=== PATIENT | female | born 1945 | race Caucasian/White ===

== ENCOUNTER 2021-11-25 16:53 | Inpatient (IN) ==
[2021-11-25 18:03] LABS: Bilirubin,Urine Negative (Negative); Blood, Urine Moderate mg/dL (Negative); Glucose,Urine (UA) Negative (Negative); Ketones,Urine Negative (Negative); Nitrite,Urine Negative (Negative); Protein,Urine 100 mg/dL (Negative); Urine Appearance HAZY (Clear); Urine Color Yellow (Yellow); Urine pH 5.5 (4.5-8.0)
[2021-11-25 18:04] LABS: Urine Urobilinogen 0.2 eU/dL (<2.0)
[2021-11-25 18:06] LABS: Bacteria,Urine Occasional /HPF (Few); RBC,Urine 43 /HPF (0-4)
[2021-11-25 18:18] LABS: Basophils # 0.1 10*3/uL (0.0-0.2); Basophils % 0.8 % (0.0-0.8); Eosinophils # 0.3 10*3/uL (0.0-0.87); Eosinophils % 3.1 % (0.00-10.9); Hematocrit 29.7 VOL% (35.7-47.0); Hemoglobin 9.2 GM/DL (12.0-16.0); Immature Granulocytes % 0.4 %; Immature Granulocytes Absolute 0.04 #; Lymphocytes # 1.5 10*3/uL (1.4-4.0); Lymphocytes % 14.8 % (21.3-54.2); Mean Corpuscular Volume 81.1 FL (87-102); Mean Platelet Volume 9.1 FL (9.6-12.0); Monocytes # 0.6 10*3/uL (0.11-0.8); Monocytes % 6.4 % (1.7-12.7); Neutrophils % 74.5 % (38.7-73.9); Platelet Count 489 T/CUMM (130-400); Red Blood Count 3.66 MC/CUMM (3.8-5.5); Red Cell Distribution Width 15.7 % (9.3-17.3)
[2021-11-25] MEDS ORDERED: SODIUM CHLORIDE 0.9% 1,000 ML IV STA (18:34)
[2021-11-25] MEDS ORDERED: cefTRIAXone 1,000 MG in SODIUM CHLORIDE 0.9% 100 ML IV STA (18:34)
[2021-11-25 18:35] LABS: Alanine Aminotransferase 30 U/L (13-56); Albumin 3.3 G/DL (3.4-5.0); Alkaline Phosphatase 172 U/L (45-117); Aspartate Amino Transferase 14 U/L (0-37); Bilirubin,Total < 0.39 MG/DL (0.20-1.00); Blood Urea Nitrogen 140 MG/DL (7-18); Calcium 9.6 MG/DL (8.5-10.1); Carbon Dioxide 16 MMOL/L (21-32); Chloride 102 MMOL/L (98-107); Estimated Glom Filtration Rate 9 ML/MIN; Glucose 196 MG/DL (74-106); Osmolality,Calculated 303.4 MOS/KG (273-304); Potassium 5.3 MMOL/L (3.5-5.1); Sodium 126 MMOL/L (136-145); Total Protein 8.9 G/DL (6.4-8.2)
[2021-11-25] MEDS ORDERED: hydrALAZINE 20 MG/1 ML VIAL IV PRN (20:05)
[2021-11-25] MEDS ORDERED: MORPHINE 2 MG/1 ML SYRINGE IV PRN (20:05)
[2021-11-25] MEDS ORDERED: DEXTROSE 50% 25 GM/50 ML VIAL IV PRN (20:05)
[2021-11-25] MEDS ORDERED: GLUCAGON 1 MG VIAL IM PRN ×2 (20:05)
[2021-11-25] MEDS ORDERED: guaiFENesin/DM ER 600-30 MG TABLET PO PRN (20:05)
[2021-11-25] MEDS ORDERED: NICOTINE 21 MG/24 HR PATCH TRANSDERM PRN (20:05)
[2021-11-25] MEDS ORDERED: ONDANSETRON 4 MG/2 ML VIAL IV PRN (20:05)
[2021-11-25] MEDS ORDERED: diphenhydrAMINE CAP 25 MG CAPSULE PO PRN (20:05)
[2021-11-25] MEDS ORDERED: DEXTROSE 10% 250 ML BAG IV PRN (20:13)
[2021-11-25 20:19] LABS: Basophils # 0.1 10*3/uL (0.0-0.2); Basophils % 0.8 % (0.0-0.8); Eosinophils # 0.3 10*3/uL (0.0-0.87); Eosinophils % 3.1 % (0.00-10.9); Hematocrit 29.3 VOL% (35.7-47.0); Immature Granulocytes % 0.7 %; Immature Granulocytes Absolute 0.07 #; Lymphocytes # 1.6 10*3/uL (1.4-4.0); Lymphocytes % 14.9 % (21.3-54.2); Mean Corpuscular HGB Conc 30.7 GM/DL (32-36); Mean Corpuscular Volume 81.2 FL (87-102); Mean Platelet Volume 9.8 FL (9.6-12.0); Monocytes # 0.8 10*3/uL (0.11-0.8); Monocytes % 7.9 % (1.7-12.7); Neutrophils % 72.6 % (38.7-73.9); Platelet Count 503 T/CUMM (130-400); Red Blood Count 3.61 MC/CUMM (3.8-5.5); Red Cell Distribution Width 15.6 % (9.3-17.3); White Blood Count 10.5 T/CUMM (4-12)
[2021-11-25 21:24] LABS: Sedimentation Rate-Westergren 68 MM/HR (0-30)
[2021-11-25] MEDS: SODIUM CHLORIDE 0.9% 1,000 ML IV SCH (22:21)
[2021-11-25] MEDS: ZALEPLON 5 MG CAPSULE PO PRN (22:21)
[2021-11-25] MEDS: INSULIN LISPRO 100 UNIT/ML SUBCUT SCH (22:22)
[2021-11-26 05:16] LABS: Basophils # 0.1 10*3/uL (0.0-0.2); Basophils % 0.8 % (0.0-0.8); Eosinophils # 0.4 10*3/uL (0.0-0.87); Eosinophils % 3.9 % (0.00-10.9); Hematocrit 26.9 VOL% (35.7-47.0); Hemoglobin 8.3 GM/DL (12.0-16.0); Immature Granulocytes % 0.5 %; Immature Granulocytes Absolute 0.05 #; Lymphocytes # 1.3 10*3/uL (1.4-4.0); Lymphocytes % 14.2 % (21.3-54.2); Mean Corpuscular HGB Conc 30.9 GM/DL (32-36); Mean Corpuscular Volume 81.3 FL (87-102); Mean Platelet Volume 9.1 FL (9.6-12.0); Monocytes # 0.7 10*3/uL (0.11-0.8); Monocytes % 7.6 % (1.7-12.7); Platelet Count 449 T/CUMM (130-400); Red Blood Count 3.31 MC/CUMM (3.8-5.5); Red Cell Distribution Width 15.4 % (9.3-17.3); White Blood Count 9.2 T/CUMM (4-12)
[2021-11-26 05:41] LABS: Calcium 9.4 MG/DL (8.5-10.1); Osmolality,Calculated 318.1 MOS/KG (273-304); Potassium 5.5 MMOL/L (3.5-5.1)
[2021-11-26] MEDS ORDERED: cefTRIAXone 1,000 MG in SODIUM CHLORIDE 0.9% 100 ML IV ONE (07:46)
[2021-11-26] MEDS: INSULIN LISPRO 100 UNIT/ML SUBCUT SCH ×4 (07:47→21:07)
[2021-11-26] MEDS: PANTOPRAZOLE 40 MG TABLET PO SCH (09:44)
[2021-11-26] MEDS: ACETAMINOPHEN 325 MG TABLET PO PRN (09:44)
[2021-11-26] MEDS: SODIUM POLYSTYRENE SULFATE 15 GM/60 ML BOTTLE PO SCH ×3 (09:44→21:02)
[2021-11-26] MEDS: cefTRIAXone 1,000 MG in SODIUM CHLORIDE 0.9% 100 ML IV SCH (09:44)
[2021-11-26] MEDS: NICOTINE 21 MG/24 HR PATCH TRANSDERM SCH (11:03)
[2021-11-26 12:43] LABS: Hemoglobin A1 (Alkaline) 98.2 % (96.5-98.5); Hemoglobin A2 (Alkaline) 1.8 % (1.5-3.5)
[2021-11-26] MEDS: SODIUM CHLORIDE 0.9% 1,000 ML IV SCH (21:15)
[2021-11-26] MEDS: METOPROLOL TARTRATE 25 MG TABLET PO SCH (21:16)
[2021-11-26] MEDS: SIMVASTATIN 10 MG TABLET PO SCH (21:16)
[2021-11-26] MEDS: ZALEPLON 5 MG CAPSULE PO PRN (21:19)
[2021-11-27] MEDS: SODIUM POLYSTYRENE SULFATE 15 GM/60 ML BOTTLE PO SCH (04:51)
[2021-11-27 06:07] LABS: Basophils # 0.1 10*3/uL (0.0-0.2); Basophils % 1.1 % (0.0-0.8); Eosinophils # 0.5 10*3/uL (0.0-0.87); Eosinophils % 5.5 % (0.00-10.9); Hematocrit 25.2 VOL% (35.7-47.0); Hemoglobin 7.7 GM/DL (12.0-16.0); Immature Granulocytes % 0.5 %; Immature Granulocytes Absolute 0.04 #; Lymphocytes # 1.6 10*3/uL (1.4-4.0); Lymphocytes % 18.9 % (21.3-54.2); Mean Corpuscular HGB Conc 30.6 GM/DL (32-36); Mean Corpuscular Volume 82.1 FL (87-102); Mean Platelet Volume 9.5 FL (9.6-12.0); Monocytes # 0.9 10*3/uL (0.11-0.8); Monocytes % 10.6 % (1.7-12.7); Neutrophils % 63.4 % (38.7-73.9); Platelet Count 407 T/CUMM (130-400); Red Blood Count 3.07 MC/CUMM (3.8-5.5); Red Cell Distribution Width 15.9 % (9.3-17.3); White Blood Count 8.4 T/CUMM (4-12)
[2021-11-27 06:25] LABS: Alanine Aminotransferase 25 U/L (13-56); Albumin 2.7 G/DL (3.4-5.0); Alkaline Phosphatase 134 U/L (45-117); Aspartate Amino Transferase 16 U/L (0-37); Bilirubin,Total < 0.39 MG/DL (0.20-1.00); Blood Urea Nitrogen 117 MG/DL (7-18); Calcium 8.7 MG/DL (8.5-10.1); Carbon Dioxide 17 MMOL/L (21-32); Chloride 114 MMOL/L (98-107); Estimated Glom Filtration Rate 12 ML/MIN; Glucose 100 MG/DL (74-106); Osmolality,Calculated 317.3 MOS/KG (273-304); Phosphorous 4.9 MG/DL (2.5-4.9); Potassium 4.2 MMOL/L (3.5-5.1); Sodium 141 MMOL/L (136-145); Total Protein 7.3 G/DL (6.4-8.2); Uric Acid 6.4 MG/DL (2.6-6.0)
[2021-11-27] MEDS: INSULIN LISPRO 100 UNIT/ML SUBCUT SCH ×4 (07:10→20:44)
[2021-11-27] MEDS ORDERED: cefTRIAXone 1,000 MG in SODIUM CHLORIDE 0.9% 100 ML IV ONE (07:30)
[2021-11-27] MEDS: cefTRIAXone 1,000 MG in SODIUM CHLORIDE 0.9% 100 ML IV SCH (10:38)
[2021-11-27] MEDS: METOPROLOL TARTRATE 25 MG TABLET PO SCH ×2 (10:39→20:44)
[2021-11-27] MEDS: CYANOCOBALAMIN 500 MCG TABLET PO SCH (10:40)
[2021-11-27] MEDS: PANTOPRAZOLE 40 MG TABLET PO SCH (10:40)
[2021-11-27] MEDS: NICOTINE 21 MG/24 HR PATCH TRANSDERM SCH (10:40)
[2021-11-27] MEDS ORDERED: LACTATED RINGERS 1,000 ML IV SCH (13:30)
[2021-11-27] MEDS ORDERED: MIDAZOLAM 2 MG/2 ML VIAL ONE (14:18)
[2021-11-27] MEDS ORDERED: SEVOFLURANE 1 UNIT/15 MINUTE INH ONE (15:16)
[2021-11-27] MEDS ORDERED: LIDOCAINE 2% 5 ML VIAL ONE (15:16)
[2021-11-27] MEDS ORDERED: propofoL 200 MG/20 ML VIAL IV ONE (15:16)
[2021-11-27] MEDS ORDERED: ONDANSETRON 4 MG/2 ML VIAL ONE (15:16)
[2021-11-27 15:47] LABS: RBC,Urine 1220 /HPF (0-4); Squamous Epithelial Cell,Urine Occasional /HPF (0-10)
[2021-11-27 15:48] LABS: Bilirubin,Urine Negative (Negative); Blood, Urine Large mg/dL (Negative); Glucose,Urine (UA) Negative (Negative); Ketones,Urine Negative (Negative); Nitrite,Urine Negative (Negative); Protein,Urine Negative (Negative); Urine Appearance Slightly Cloudy (Clear); Urine Color P (Yellow); Urine Specific Gravity 1.008 (1.001-1.035); Urine Urobilinogen 0.2 eU/dL (<2.0)
[2021-11-27] MEDS ORDERED: DEXTROSE 10% 250 ML BAG IV PRN (16:14)
[2021-11-27] MEDS: SODIUM CHLORIDE 0.9% 1,000 ML IV SCH (16:20)
[2021-11-27] MEDS ORDERED: LABETALOL 20 MG/4 ML SYRINGE IV ONE (17:03)
[2021-11-27] MEDS: FLUCONAZOLE 200 MG TABLET PO SCH (17:44)
[2021-11-27] MEDS: SIMVASTATIN 10 MG TABLET PO SCH (20:43)
[2021-11-27] MEDS: OXYBUTYNIN 5 MG TABLET PO SCH (20:44)
[2021-11-27] MEDS: HYDROmorphone 1 MG/1 ML SYRINGE IV PRN (21:02)
[2021-11-28] MEDS: SODIUM CHLORIDE 0.9% 1,000 ML IV SCH ×2 (06:20→16:54)
[2021-11-28] MEDS: INSULIN LISPRO 100 UNIT/ML SUBCUT SCH ×4 (08:34→20:14)
[2021-11-28] MEDS: cefTRIAXone 1,000 MG in SODIUM CHLORIDE 0.9% 100 ML IV SCH (08:34)
[2021-11-28] MEDS: PANTOPRAZOLE 40 MG TABLET PO SCH (08:35)
[2021-11-28] MEDS: METOPROLOL TARTRATE 25 MG TABLET PO SCH ×2 (08:35→20:13)
[2021-11-28] MEDS: FLUCONAZOLE 200 MG TABLET PO SCH (08:35)
[2021-11-28] MEDS: CYANOCOBALAMIN 500 MCG TABLET PO SCH (08:35)
[2021-11-28] MEDS: OXYBUTYNIN 5 MG TABLET PO SCH ×3 (08:35→20:13)
[2021-11-28] MEDS: NICOTINE 21 MG/24 HR PATCH TRANSDERM SCH (12:19)
[2021-11-28] MEDS: ACETAMINOPHEN 325 MG TABLET PO PRN (12:22)
[2021-11-28 13:13] LABS: Calcium 8.4 MG/DL (8.5-10.1); Osmolality,Calculated 308.3 MOS/KG (273-304); Potassium 3.9 MMOL/L (3.5-5.1)
[2021-11-28] MEDS: SIMVASTATIN 10 MG TABLET PO SCH (20:13)
[2021-11-28] MEDS: HYDROmorphone 1 MG/1 ML SYRINGE IV PRN (20:14)
[2021-11-28] MEDS ORDERED: INSULIN GLARGINE 100 UNIT/ML SUBCUT SCH (21:00)
[2021-11-29] MEDS: SODIUM CHLORIDE 0.9% 1,000 ML IV SCH (04:37)
[2021-11-29 06:27] LABS: Basophils # 0.1 10*3/uL (0.0-0.2); Basophils % 0.9 % (0.0-0.8); Eosinophils # 0.3 10*3/uL (0.0-0.87); Eosinophils % 3.4 % (0.00-10.9); Hematocrit 22.4 VOL% (35.7-47.0); Hemoglobin 6.7 GM/DL (12.0-16.0); Immature Granulocytes % 0.5 %; Immature Granulocytes Absolute 0.04 #; Lymphocytes # 1.3 10*3/uL (1.4-4.0); Lymphocytes % 14.6 % (21.3-54.2); Mean Corpuscular HGB Conc 29.9 GM/DL (32-36); Mean Corpuscular Volume 82.7 FL (87-102); Mean Platelet Volume 9.2 FL (9.6-12.0); Monocytes # 0.7 10*3/uL (0.11-0.8); Monocytes % 8.1 % (1.7-12.7); Neutrophils % 72.5 % (38.7-73.9); Platelet Count 386 T/CUMM (130-400); Red Blood Count 2.71 MC/CUMM (3.8-5.5); Red Cell Distribution Width 16.2 % (9.3-17.3); White Blood Count 8.8 T/CUMM (4-12)
[2021-11-29 07:04] LABS: Alanine Aminotransferase 18 U/L (13-56); Albumin 2.3 G/DL (3.4-5.0); Alkaline Phosphatase 98 U/L (45-117); Aspartate Amino Transferase 14 U/L (0-37); Bilirubin,Total < 0.39 MG/DL (0.20-1.00); Blood Urea Nitrogen 65 MG/DL (7-18); Calcium 8.1 MG/DL (8.5-10.1); Carbon Dioxide 17 MMOL/L (21-32); Chloride 119 MMOL/L (98-107); Estimated Glom Filtration Rate 19 ML/MIN; Glucose 157 MG/DL (74-106); Potassium 4.1 MMOL/L (3.5-5.1); Sodium 143 MMOL/L (136-145); Total Protein 6.2 G/DL (6.4-8.2)
[2021-11-29 08:46] LABS: Hematocrit 23.1 VOL% (35.7-47.0)
[2021-11-29] MEDS: cefTRIAXone 1,000 MG in SODIUM CHLORIDE 0.9% 100 ML IV SCH (08:49)
[2021-11-29] MEDS: FLUCONAZOLE 200 MG TABLET PO SCH (08:50)
[2021-11-29] MEDS: OXYBUTYNIN 5 MG TABLET PO SCH ×2 (08:51→15:05)
[2021-11-29] MEDS: PANTOPRAZOLE 40 MG TABLET PO SCH (08:51)
[2021-11-29] MEDS: CYANOCOBALAMIN 500 MCG TABLET PO SCH (08:51)
[2021-11-29] MEDS: METOPROLOL TARTRATE 25 MG TABLET PO SCH (08:51)
[2021-11-29] MEDS: INSULIN LISPRO 100 UNIT/ML SUBCUT SCH ×2 (08:52→11:51)
[2021-11-29] MEDS ORDERED: ERGOCALCIFEROL 50,000 UNIT CAPSULE PO SCH (09:00)
[2021-11-29] MEDS: NICOTINE 21 MG/24 HR PATCH TRANSDERM SCH (12:28)
[2021-11-29 12:42] VITALS: BP 118/58
[2021-11-29 13:24] LABS: Basophils # 0.1 10*3/uL (0.0-0.2); Eosinophils # 0.3 10*3/uL (0.0-0.87); Eosinophils % 2.9 % (0.00-10.9); Hematocrit 24.4 VOL% (35.7-47.0); Hemoglobin 7.1 GM/DL (12.0-16.0); Immature Granulocytes % 0.7 %; Immature Granulocytes Absolute 0.06 #; Lymphocytes # 1.2 10*3/uL (1.4-4.0); Lymphocytes % 12.8 % (21.3-54.2); Mean Corpuscular HGB Conc 29.1 GM/DL (32-36); Mean Corpuscular Volume 85.6 FL (87-102); Mean Platelet Volume 9.3 FL (9.6-12.0); Monocytes # 0.9 10*3/uL (0.11-0.8); Monocytes % 9.4 % (1.7-12.7); Neutrophils % 73.2 % (38.7-73.9); Platelet Count 392 T/CUMM (130-400); Red Blood Count 2.85 MC/CUMM (3.8-5.5); Red Cell Distribution Width 16.1 % (9.3-17.3)
[2021-11-30 19:15] LABS: Folate 12.18 NG/ML (5.38-24.0); Vitamin B12 1269 PG/ML (211-911)
== END 2021-11-29 15:40 | disposition home health service (06) | DRG 660 ==
LOC: N.ED 16:53 → N.EDINP 20:05 → SUATTDRO 20:05 → N.EDINP 21:25 → N.3E 21:57
PROVIDERS: ADMIT Internal Medicine; ATTEND Family Medicine

== ENCOUNTER 2021-12-08 19:29 | Inpatient (IN) ==
[2021-12-08] MEDS ORDERED: ACETAMINOPHEN 500 MG TABLET PO STA (20:14)
[2021-12-08] MEDS ORDERED: MEROPENEM 500 MG in SODIUM CHLORIDE 0.9% 100 ML IV STA (20:14)
[2021-12-08] MEDS ORDERED: SODIUM CHLORIDE 0.9% 1,000 ML IV STA (20:14)
[2021-12-08 20:57] LABS: Basophils # 0.1 10*3/uL (0.0-0.2); Basophils % 0.5 % (0.0-0.8); Eosinophils # 0.1 10*3/uL (0.0-0.87); Eosinophils % 0.8 % (0.00-10.9); Hematocrit 26.9 VOL% (35.7-47.0); Hemoglobin 8.1 GM/DL (12.0-16.0); Immature Granulocytes % 0.7 %; Immature Granulocytes Absolute 0.08 #; Lymphocytes % 8.2 % (21.3-54.2); Mean Corpuscular HGB Conc 30.1 GM/DL (32-36); Mean Corpuscular Volume 83.5 FL (87-102); Mean Platelet Volume 9.2 FL (9.6-12.0); Monocytes # 0.9 10*3/uL (0.11-0.8); Monocytes % 7.4 % (1.7-12.7); Neutrophils % 82.4 % (38.7-73.9); Platelet Count 490 T/CUMM (130-400); Red Blood Count 3.22 MC/CUMM (3.8-5.5); Red Cell Distribution Width 15.9 % (9.3-17.3); White Blood Count 12.1 T/CUMM (4-12)
[2021-12-08 21:21] LABS: Alanine Aminotransferase 37 U/L (13-56); Albumin 2.8 G/DL (3.4-5.0); Alkaline Phosphatase 146 U/L (45-117); Amylase 31 U/L (25-115); Aspartate Amino Transferase 19 U/L (0-37); Bilirubin,Total < 0.39 MG/DL (0.20-1.00); Blood Urea Nitrogen 103 MG/DL (7-18); Calcium 8.9 MG/DL (8.5-10.1); Carbon Dioxide 17 MMOL/L (21-32); Chloride 108 MMOL/L (98-107); Estimated Glom Filtration Rate 13 ML/MIN; Glucose 143 MG/DL (74-106); Osmolality,Calculated 301.2 MOS/KG (273-304); Potassium 5.6 MMOL/L (3.5-5.1); Sodium 134 MMOL/L (136-145); Total Protein 8.2 G/DL (6.4-8.2)
[2021-12-08 21:36] LABS: RBC,Urine 44 /HPF (0-4); Squamous Epithelial Cell,Urine Occasional /HPF (0-10)
[2021-12-08 21:37] LABS: Bilirubin,Urine Negative (Negative); Blood, Urine Large mg/dL (Negative); Glucose,Urine (UA) Negative (Negative); Ketones,Urine Negative (Negative); Nitrite,Urine Negative (Negative); Protein,Urine >=300 mg/dL (Negative); Urine Appearance CLOUDY (Clear); Urine Color Yellow (Yellow); Urine Specific Gravity 1.015 (1.001-1.035); Urine Urobilinogen 0.2 eU/dL (<2.0); Urine pH 5.5 (4.5-8.0)
[2021-12-08] MEDS ORDERED: guaiFENesin/DM ER 600-30 MG TABLET PO PRN (22:33)
[2021-12-08] MEDS ORDERED: diphenhydrAMINE CAP 25 MG CAPSULE PO PRN (22:33)
[2021-12-08] MEDS ORDERED: PROMETHAZINE 25 MG/1 ML VIAL IM PRN (22:33)
[2021-12-08] MEDS ORDERED: ONDANSETRON 4 MG/2 ML VIAL IV PRN (22:33)
[2021-12-08] MEDS ORDERED: GLUCAGON 1 MG VIAL IM PRN (22:33)
[2021-12-08] MEDS ORDERED: ACETAMINOPHEN 325 MG TABLET PO PRN (22:33)
[2021-12-08] MEDS ORDERED: DEXTROSE 10% 250 ML BAG IV PRN (22:33)
[2021-12-08] MEDS ORDERED: DOCUSATE SODIUM 100 MG CAPSULE PO PRN (22:33)
[2021-12-08] MEDS ORDERED: hydrALAZINE 20 MG/1 ML VIAL IV PRN (22:33)
[2021-12-09] MEDS ORDERED: INSULIN LISPRO 100 UNIT/ML SUBCUT SCH
[2021-12-09 05:20] LABS: Basophils # 0.1 10*3/uL (0.0-0.2); Basophils % 0.8 % (0.0-0.8); Eosinophils # 0.3 10*3/uL (0.0-0.87); Eosinophils % 2.4 % (0.00-10.9); Hematocrit 22.5 VOL% (35.7-47.0); Hemoglobin 6.8 GM/DL (12.0-16.0); Immature Granulocytes % 0.6 %; Immature Granulocytes Absolute 0.07 #; Lymphocytes # 2.2 10*3/uL (1.4-4.0); Lymphocytes % 20.1 % (21.3-54.2); Mean Corpuscular HGB Conc 30.2 GM/DL (32-36); Mean Corpuscular Volume 83.6 FL (87-102); Mean Platelet Volume 9.5 FL (9.6-12.0); Monocytes # 1.1 10*3/uL (0.11-0.8); Monocytes % 9.7 % (1.7-12.7); Neutrophils % 66.4 % (38.7-73.9); Platelet Count 428 T/CUMM (130-400); Red Blood Count 2.69 MC/CUMM (3.8-5.5); Red Cell Distribution Width 15.9 % (9.3-17.3); White Blood Count 10.8 T/CUMM (4-12)
[2021-12-09 05:33] LABS: Osmolality,Calculated 294.5 MOS/KG (273-304); Potassium 5.5 MMOL/L (3.5-5.1)
[2021-12-09] MEDS ORDERED: SODIUM CHLORIDE 0.9% 1,000 ML IV PRN (06:56)
[2021-12-09] MEDS ORDERED: MAGNESIUM SULF RIDER 4 GM/100 ML PREMIX IV PRN (07:00)
[2021-12-09] MEDS ORDERED: MAGNESIUM SULF RIDER 2 GM/50 ML PREMIX IV PRN (07:00)
[2021-12-09] MEDS ORDERED: MEROPENEM 500 MG in SODIUM CHLORIDE 0.9% 100 ML IV SCH (09:00)
[2021-12-09] MEDS: FLUCONAZOLE INJ 200 MG/100 ML PREMIX IV SCH (09:53)
[2021-12-09] MEDS: cefTRIAXone 1,000 MG in SODIUM CHLORIDE 0.9% 100 ML IV SCH (09:53)
[2021-12-09 10:56] LABS: Hematocrit 23.2 VOL% (35.7-47.0); Hemoglobin 7.1 GM/DL (12.0-16.0)
[2021-12-09] MEDS ORDERED: SODIUM POLYSTYRENE SULFATE 15 GM/60 ML BOTTLE PO ONE (11:15)
[2021-12-09] MEDS: HEPARIN 5,000 UNIT/1 ML VIAL SUBCUT SCH ×2 (11:23→21:30)
[2021-12-09] MEDS: INSULIN LISPRO 100 UNIT/ML SUBCUT SCH ×4 (11:24→21:30)
[2021-12-09] MEDS: PANTOPRAZOLE 40 MG TABLET PO SCH (11:36)
[2021-12-09] MEDS: ZALEPLON 5 MG CAPSULE PO PRN (22:39)
[2021-12-09] MEDS: NICOTINE 21 MG/24 HR PATCH TRANSDERM PRN (22:39)
[2021-12-10 06:15] LABS: Basophils # 0.1 10*3/uL (0.0-0.2); Basophils % 1.3 % (0.0-0.8); Eosinophils # 0.4 10*3/uL (0.0-0.87); Eosinophils % 6.4 % (0.00-10.9); Hematocrit 26.9 VOL% (35.7-47.0); Hemoglobin 8.1 GM/DL (12.0-16.0); Immature Granulocytes % 1.1 %; Immature Granulocytes Absolute 0.07 #; Lymphocytes # 1.4 10*3/uL (1.4-4.0); Lymphocytes % 21.9 % (21.3-54.2); Mean Corpuscular HGB Conc 30.1 GM/DL (32-36); Mean Platelet Volume 9.1 FL (9.6-12.0); Monocytes # 0.7 10*3/uL (0.11-0.8); Monocytes % 10.7 % (1.7-12.7); Neutrophils % 58.6 % (38.7-73.9); Platelet Count 437 T/CUMM (130-400); Red Blood Count 3.28 MC/CUMM (3.8-5.5); Red Cell Distribution Width 15.6 % (9.3-17.3); White Blood Count 6.3 T/CUMM (4-12)
[2021-12-10 06:33] LABS: Osmolality,Calculated 308.8 MOS/KG (273-304); Potassium 4.9 MMOL/L (3.5-5.1)
[2021-12-10] MEDS ORDERED: SODIUM CHLORIDE 0.9% 500 ML IV SCH (08:00)
[2021-12-10] MEDS: FLUCONAZOLE INJ 200 MG/100 ML PREMIX IV SCH (09:14)
[2021-12-10] MEDS: PANTOPRAZOLE 40 MG TABLET PO SCH (09:15)
[2021-12-10] MEDS: INSULIN LISPRO 100 UNIT/ML SUBCUT SCH ×4 (09:17→22:33)
[2021-12-10 10:13] LABS: Folate 10.75 NG/ML (5.38-24.0)
[2021-12-10] MEDS: cefTRIAXone 1,000 MG in SODIUM CHLORIDE 0.9% 100 ML IV SCH (10:42)
[2021-12-10] MEDS: HEPARIN 5,000 UNIT/1 ML VIAL SUBCUT SCH ×3 (12:53→22:33)
[2021-12-10] MEDS: ZALEPLON 5 MG CAPSULE PO PRN (21:48)
[2021-12-10] MEDS: NICOTINE 21 MG/24 HR PATCH TRANSDERM PRN (21:49)
[2021-12-11 08:20] LABS: Basophils # 0.1 10*3/uL (0.0-0.2); Basophils % 1.5 % (0.0-0.8); Eosinophils # 0.5 10*3/uL (0.0-0.87); Eosinophils % 6.7 % (0.00-10.9); Hematocrit 27.5 VOL% (35.7-47.0); Hemoglobin 8.4 GM/DL (12.0-16.0); Immature Granulocytes % 0.7 %; Immature Granulocytes Absolute 0.05 #; Lymphocytes # 1.7 10*3/uL (1.4-4.0); Lymphocytes % 24.5 % (21.3-54.2); Mean Corpuscular HGB Conc 30.5 GM/DL (32-36); Mean Corpuscular Volume 82.6 FL (87-102); Mean Platelet Volume 9.2 FL (9.6-12.0); Monocytes # 0.8 10*3/uL (0.11-0.8); Monocytes % 11.3 % (1.7-12.7); Neutrophils % 55.3 % (38.7-73.9); Platelet Count 512 T/CUMM (130-400); Red Blood Count 3.33 MC/CUMM (3.8-5.5); Red Cell Distribution Width 15.7 % (9.3-17.3); White Blood Count 6.8 T/CUMM (4-12)
[2021-12-11 08:37] LABS: Calcium 9.1 MG/DL (8.5-10.1); Osmolality,Calculated 301.8 MOS/KG (273-304)
[2021-12-11] MEDS: INSULIN LISPRO 100 UNIT/ML SUBCUT SCH ×4 (09:51→21:06)
[2021-12-11] MEDS: HEPARIN 5,000 UNIT/1 ML VIAL SUBCUT SCH ×2 (10:15→20:39)
[2021-12-11] MEDS: PANTOPRAZOLE 40 MG TABLET PO SCH (10:36)
[2021-12-11] MEDS ORDERED: MAGNESIUM OXIDE 400 MG TABLET PO ONE (12:00)
[2021-12-11] MEDS: FLUCONAZOLE INJ 200 MG/100 ML PREMIX IV SCH (16:43)
[2021-12-11] MEDS ORDERED: MICONAZOLE 100 MG VAG SUPP 7/BOX VAG SCH (21:00)
[2021-12-11] MEDS: cefTRIAXone 1,000 MG in SODIUM CHLORIDE 0.9% 100 ML IV SCH (21:07)
[2021-12-11] MEDS: ZALEPLON 5 MG CAPSULE PO PRN (23:04)
[2021-12-11] MEDS: NICOTINE 21 MG/24 HR PATCH TRANSDERM PRN (23:04)
[2021-12-12 05:34] LABS: Basophils # 0.1 10*3/uL (0.0-0.2); Basophils % 1.1 % (0.0-0.8); Eosinophils # 0.6 10*3/uL (0.0-0.87); Hematocrit 26.7 VOL% (35.7-47.0); Hemoglobin 7.9 GM/DL (12.0-16.0); Immature Granulocytes % 0.7 %; Immature Granulocytes Absolute 0.05 #; Lymphocytes # 1.9 10*3/uL (1.4-4.0); Lymphocytes % 27.2 % (21.3-54.2); Mean Corpuscular HGB Conc 29.6 GM/DL (32-36); Mean Corpuscular Volume 83.2 FL (87-102); Mean Platelet Volume 9.4 FL (9.6-12.0); Monocytes # 0.8 10*3/uL (0.11-0.8); Platelet Count 460 T/CUMM (130-400); Red Blood Count 3.21 MC/CUMM (3.8-5.5); Red Cell Distribution Width 15.6 % (9.3-17.3)
[2021-12-12 05:50] LABS: Calcium 8.7 MG/DL (8.5-10.1); Osmolality,Calculated 303.4 MOS/KG (273-304); Potassium 5.1 MMOL/L (3.5-5.1)
[2021-12-12 08:04] VITALS: BP 144/63
[2021-12-12] MEDS: FLUCONAZOLE INJ 200 MG/100 ML PREMIX IV SCH (08:27)
[2021-12-12] MEDS: PANTOPRAZOLE 40 MG TABLET PO SCH (08:27)
[2021-12-12] MEDS: HEPARIN 5,000 UNIT/1 ML VIAL SUBCUT SCH (08:28)
[2021-12-12] MEDS: INSULIN LISPRO 100 UNIT/ML SUBCUT SCH (08:28)
== END 2021-12-12 11:50 | disposition home health service (06) | DRG 690 ==
LOC: N.ED 19:29 → N.EDINP 22:23 → N.3E 23:28
PROVIDERS: ADMIT Internal Medicine; ATTEND Internal Medicine

== ENCOUNTER 2021-12-31 12:48 | Inpatient (IN) ==
[2021-12-31 16:08] LABS: Protein,Urine >=300 mg/dL (Negative); Urine Appearance HAZY (Clear); Urine Color Yellow (Yellow); Urine Specific Gravity 1.015 (1.001-1.035); Urine pH 5.5 (4.5-8.0)
[2021-12-31 16:09] LABS: Bilirubin,Urine Negative (Negative); Blood, Urine Large mg/dL (Negative); Glucose,Urine (UA) Negative (Negative); Ketones,Urine Negative (Negative); Nitrite,Urine Negative (Negative); Urine Urobilinogen 0.2 eU/dL (<2.0)
[2021-12-31 16:18] LABS: Bacteria,Urine Few /HPF (Few); RBC,Urine 47 /HPF (0-4)
[2021-12-31] MEDS ORDERED: SODIUM CHLORIDE 0.9% 500 ML IV STA (16:29)
[2021-12-31] MEDS ORDERED: cefTRIAXone 1,000 MG in SODIUM CHLORIDE 0.9% 100 ML IV STA (16:32)
[2021-12-31 17:12] LABS: Basophils # 0.1 10*3/uL (0.0-0.2); Basophils % 0.9 % (0.0-0.8); Eosinophils # 0.1 10*3/uL (0.0-0.87); Hematocrit 30.6 VOL% (35.7-47.0); Hemoglobin 9.9 GM/DL (12.0-16.0); Immature Granulocytes % 1.6 %; Immature Granulocytes Absolute 0.13 #; Lymphocytes # 1.3 10*3/uL (1.4-4.0); Lymphocytes % 15.5 % (21.3-54.2); Mean Corpuscular HGB Conc 32.4 GM/DL (32-36); Mean Corpuscular Volume 77.9 FL (87-102); Mean Platelet Volume 9.1 FL (9.6-12.0); Monocytes # 0.6 10*3/uL (0.11-0.8); Platelet Count 592 T/CUMM (130-400); Red Blood Count 3.93 MC/CUMM (3.8-5.5); Red Cell Distribution Width 14.8 % (9.3-17.3)
[2021-12-31 17:35] LABS: Alanine Aminotransferase 23 U/L (13-56); Albumin 3.2 G/DL (3.4-5.0); Alkaline Phosphatase 153 U/L (45-117); Aspartate Amino Transferase 17 U/L (0-37); Bilirubin,Total < 0.39 MG/DL (0.20-1.00); Blood Urea Nitrogen 147 MG/DL (7-18); Calcium 10.3 MG/DL (8.5-10.1); Carbon Dioxide 20 MMOL/L (21-32); Chloride 93 MMOL/L (98-107); Glucose 158 MG/DL (74-106); Osmolality,Calculated 292.2 MOS/KG (273-304)
[2021-12-31 17:53] LABS: Sodium 120 MMOL/L (136-145)
[2021-12-31 17:54] LABS: Potassium 7.5 MMOL/L (3.5-5.1)
[2021-12-31] MEDS ORDERED: SODIUM CHLORIDE 0.9% 1,000 ML IV STA (17:59)
[2021-12-31] MEDS ORDERED: ONDANSETRON 4 MG/2 ML VIAL IV PRN (18:03)
[2021-12-31] MEDS: ACETAMINOPHEN 325 MG TABLET PO PRN (19:18)
[2021-12-31 22:10] LABS: Calcium 9.4 MG/DL (8.5-10.1); Osmolality,Calculated 293.6 MOS/KG (273-304)
[2021-12-31] MEDS: FLUCONAZOLE INJ 200 MG/100 ML PREMIX IV SCH (22:11)
[2021-12-31] MEDS: METOPROLOL TARTRATE 25 MG TABLET PO SCH (22:11)
[2021-12-31 22:12] LABS: Potassium 7.2 MMOL/L (3.5-5.1)
[2021-12-31] MEDS ORDERED: INSULIN REGULAR 10 UNIT, CALCIUM GLUCONATE 1,000 MG in DEXTROSE 10% 250 ML IV ONE (22:37)
[2021-12-31] MEDS ORDERED: DEXTROSE 10% 250 ML BAG IV PRN (23:35)
[2022-01-01] MEDS: SODIUM CHLORIDE 0.9% 1,000 ML IV SCH ×5 (02:43→21:56)
[2022-01-01 05:15] LABS: Basophils # 0.1 10*3/uL (0.0-0.2); Basophils % 0.9 % (0.0-0.8); Eosinophils # 0.3 10*3/uL (0.0-0.87); Eosinophils % 4.4 % (0.00-10.9); Hematocrit 25.7 VOL% (35.7-47.0); Immature Granulocytes % 1.7 %; Immature Granulocytes Absolute 0.13 #; Lymphocytes # 1.1 10*3/uL (1.4-4.0); Lymphocytes % 14.6 % (21.3-54.2); Mean Corpuscular HGB Conc 31.1 GM/DL (32-36); Mean Corpuscular Volume 80.1 FL (87-102); Mean Platelet Volume 9.1 FL (9.6-12.0); Monocytes # 0.7 10*3/uL (0.11-0.8); Monocytes % 9.6 % (1.7-12.7); Neutrophils % 68.8 % (38.7-73.9); Platelet Count 487 T/CUMM (130-400); Red Blood Count 3.21 MC/CUMM (3.8-5.5); Red Cell Distribution Width 14.8 % (9.3-17.3); White Blood Count 7.5 T/CUMM (4-12)
[2022-01-01 05:30] LABS: Calcium 9.4 MG/DL (8.5-10.1); Osmolality,Calculated 292.6 MOS/KG (273-304)
[2022-01-01 05:33] LABS: Potassium 6.9 MMOL/L (3.5-5.1)
[2022-01-01] MEDS ORDERED: SODIUM POLYSTYRENE SULFATE 15 GM/60 ML BOTTLE PO ONE (09:00)
[2022-01-01] MEDS ORDERED: SODIUM ZIRCONIUM CYCLOSILICATE 10 GM PACK PO ONE (09:30)
[2022-01-01] MEDS: INSULIN GLARGINE 100 UNIT/ML SUBCUT SCH (09:45)
[2022-01-01] MEDS: OXYBUTYNIN XL 5 MG TABLET PO SCH (09:45)
[2022-01-01] MEDS: METOPROLOL TARTRATE 25 MG TABLET PO SCH ×2 (09:45→20:41)
[2022-01-01 12:49] LABS: Osmolality,Calculated 297.9 MOS/KG (273-304)
[2022-01-01 12:56] LABS: Potassium 6.8 MMOL/L (3.5-5.1)
[2022-01-01] MEDS: cefTRIAXone 1,000 MG in SODIUM CHLORIDE 0.9% 100 ML IV SCH (16:38)
[2022-01-01] MEDS: SODIUM ZIRCONIUM CYCLOSILICATE 10 GM PACK PO SCH (20:42)
[2022-01-01] MEDS: FLUCONAZOLE INJ 200 MG/100 ML PREMIX IV SCH (21:56)
[2022-01-02] MEDS: OXYBUTYNIN 5 MG TABLET PO SCH ×3 (01:55→20:46)
[2022-01-02 05:51] LABS: Basophils # 0.1 10*3/uL (0.0-0.2); Basophils % 1.3 % (0.0-0.8); Eosinophils # 0.6 10*3/uL (0.0-0.87); Eosinophils % 6.9 % (0.00-10.9); Hematocrit 24.4 VOL% (35.7-47.0); Hemoglobin 7.5 GM/DL (12.0-16.0); Immature Granulocytes % 0.9 %; Immature Granulocytes Absolute 0.07 #; Lymphocytes # 1.6 10*3/uL (1.4-4.0); Lymphocytes % 20.4 % (21.3-54.2); Mean Corpuscular HGB Conc 30.7 GM/DL (32-36); Mean Corpuscular Volume 81.6 FL (87-102); Mean Platelet Volume 9.9 FL (9.6-12.0); Monocytes # 0.8 10*3/uL (0.11-0.8); Monocytes % 9.4 % (1.7-12.7); Neutrophils % 61.1 % (38.7-73.9); Platelet Count 423 T/CUMM (130-400); Red Blood Count 2.99 MC/CUMM (3.8-5.5); Red Cell Distribution Width 15.3 % (9.3-17.3)
[2022-01-02 06:06] LABS: Calcium 9.1 MG/DL (8.5-10.1); Potassium 5.4 MMOL/L (3.5-5.1)
[2022-01-02] MEDS: SODIUM CHLORIDE 0.9% 1,000 ML IV SCH ×3 (07:02→11:09)
[2022-01-02] MEDS: OXYBUTYNIN XL 5 MG TABLET PO SCH (10:02)
[2022-01-02] MEDS: LACTULOSE 20 GM/30 ML UDCUP PO SCH (10:13)
[2022-01-02] MEDS: METOPROLOL TARTRATE 25 MG TABLET PO SCH ×2 (10:14→20:46)
[2022-01-02] MEDS: SODIUM ZIRCONIUM CYCLOSILICATE 10 GM PACK PO SCH ×2 (10:14→20:46)
[2022-01-02] MEDS: INSULIN GLARGINE 100 UNIT/ML SUBCUT SCH (10:20)
[2022-01-02] MEDS: SODIUM BICARB INJ 50 MEQ in SODIUM CHLORIDE 0.45% 1,000 ML IV SCH (13:30)
[2022-01-02] MEDS: cefTRIAXone 1,000 MG in SODIUM CHLORIDE 0.9% 100 ML IV SCH (17:26)
[2022-01-02] MEDS: FERROUS SULFATE 325 MG TABLET PO SCH (21:23)
[2022-01-02] MEDS: FLUCONAZOLE INJ 200 MG/100 ML PREMIX IV SCH (22:21)
[2022-01-03] MEDS: SODIUM BICARB INJ 50 MEQ in SODIUM CHLORIDE 0.45% 1,000 ML IV SCH ×4 (00:25→21:11)
[2022-01-03 05:18] LABS: Basophils # 0.1 10*3/uL (0.0-0.2); Basophils % 1.5 % (0.0-0.8); Eosinophils # 0.7 10*3/uL (0.0-0.87); Eosinophils % 7.5 % (0.00-10.9); Hematocrit 24.9 VOL% (35.7-47.0); Hemoglobin 7.6 GM/DL (12.0-16.0); Immature Granulocytes % 1.3 %; Immature Granulocytes Absolute 0.11 #; Lymphocytes # 1.9 10*3/uL (1.4-4.0); Lymphocytes % 21.7 % (21.3-54.2); Mean Corpuscular HGB Conc 30.5 GM/DL (32-36); Mean Corpuscular Volume 82.2 FL (87-102); Mean Platelet Volume 9.5 FL (9.6-12.0); Monocytes # 0.9 10*3/uL (0.11-0.8); Monocytes % 9.8 % (1.7-12.7); Neutrophils % 58.2 % (38.7-73.9); Platelet Count 417 T/CUMM (130-400); Red Blood Count 3.03 MC/CUMM (3.8-5.5); Red Cell Distribution Width 15.6 % (9.3-17.3); White Blood Count 8.8 T/CUMM (4-12)
[2022-01-03 05:28] LABS: Calcium 8.2 MG/DL (8.5-10.1); Osmolality,Calculated 302.3 MOS/KG (273-304)
[2022-01-03] MEDS: FERROUS SULFATE 325 MG TABLET PO SCH ×2 (08:50→20:13)
[2022-01-03] MEDS: INSULIN GLARGINE 100 UNIT/ML SUBCUT SCH (08:50)
[2022-01-03] MEDS: LACTULOSE 20 GM/30 ML UDCUP PO SCH (08:50)
[2022-01-03] MEDS: OXYBUTYNIN 5 MG TABLET PO SCH ×2 (08:50→20:13)
[2022-01-03] MEDS: METOPROLOL TARTRATE 25 MG TABLET PO SCH ×2 (08:50→20:13)
[2022-01-03] MEDS: NICOTINE 14 MG/24 HR PATCH TRANSDERM SCH (13:27)
[2022-01-03] MEDS: cefTRIAXone 1,000 MG in SODIUM CHLORIDE 0.9% 100 ML IV SCH (17:01)
[2022-01-03] MEDS ORDERED: TEMAZEPAM 7.5 MG CAPSULE PO SCH (21:00)
[2022-01-03] MEDS: FLUCONAZOLE INJ 200 MG/100 ML PREMIX IV SCH (21:10)
[2022-01-03] MEDS ORDERED: GLUCAGON 1 MG VIAL IM PRN (23:14)
[2022-01-03] MEDS ORDERED: DEXTROSE 50% 25 GM/50 ML VIAL IV PRN (23:14)
[2022-01-04 06:37] LABS: Alanine Aminotransferase 21 U/L (13-56); Albumin 2.2 G/DL (3.4-5.0); Alkaline Phosphatase 130 U/L (45-117); Aspartate Amino Transferase 17 U/L (0-37); Bilirubin,Total < 0.39 MG/DL (0.20-1.00); Blood Urea Nitrogen 48 MG/DL (7-18); Calcium 8.3 MG/DL (8.5-10.1); Carbon Dioxide 24 MMOL/L (21-32); Chloride 111 MMOL/L (98-107); Glucose 127 MG/DL (74-106); Osmolality,Calculated 295.3 MOS/KG (273-304); Potassium 4.3 MMOL/L (3.5-5.1); Sodium 141 MMOL/L (136-145); Total Protein 6.2 G/DL (6.4-8.2)
[2022-01-04 07:05] LABS: Basophils # 0.1 10*3/uL (0.0-0.2); Basophils % 0.8 % (0.0-0.8); Eosinophils # 0.8 10*3/uL (0.0-0.87); Eosinophils % 7.4 % (0.00-10.9); Hematocrit 24.2 VOL% (35.7-47.0); Hemoglobin 7.5 GM/DL (12.0-16.0); Lymphocytes # 2.2 10*3/uL (1.4-4.0); Lymphocytes % 20.5 % (21.3-54.2); Mean Corpuscular Volume 81.2 FL (87-102); Mean Platelet Volume 8.9 FL (9.6-12.0); Monocytes # 0.9 10*3/uL (0.11-0.8); Monocytes % 8.9 % (1.7-12.7); Neutrophils % 61.4 % (38.7-73.9); Platelet Count 393 T/CUMM (130-400); Red Blood Count 2.98 MC/CUMM (3.8-5.5); Red Cell Distribution Width 15.5 % (9.3-17.3); White Blood Count 10.5 T/CUMM (4-12)
[2022-01-04] MEDS ORDERED: NEOMYCIN/POLYMYXIN IRRIG SOLN 1 ML AMP BLADDERIRR ONE (07:14)
[2022-01-04] MEDS: INSULIN REGULAR 100 UNIT/ML SUBCUT SCH ×2 (08:51→16:31)
[2022-01-04] MEDS: OXYBUTYNIN 5 MG TABLET PO SCH ×2 (09:17→21:40)
[2022-01-04] MEDS: FERROUS SULFATE 325 MG TABLET PO SCH (09:17)
[2022-01-04] MEDS: METOPROLOL TARTRATE 25 MG TABLET PO SCH ×2 (09:17→21:40)
[2022-01-04] MEDS: LACTULOSE 20 GM/30 ML UDCUP PO SCH (09:17)
[2022-01-04] MEDS: NICOTINE 14 MG/24 HR PATCH TRANSDERM SCH (09:18)
[2022-01-04] MEDS: SODIUM BICARB INJ 50 MEQ in SODIUM CHLORIDE 0.45% 1,000 ML IV SCH (09:31)
[2022-01-04 09:44] LABS: % Iron Saturation 9.7 % (18-50)
[2022-01-04] MEDS ORDERED: BISACODYL 10 MG SUPP RECTAL PRN (15:04)
[2022-01-04] MEDS: BISACODYL 10 MG SUPP RECTAL SCH (15:51)
[2022-01-04] MEDS: cefTRIAXone 1,000 MG in SODIUM CHLORIDE 0.9% 100 ML IV SCH (16:32)
[2022-01-04] MEDS: hydrALAZINE 20 MG/1 ML VIAL IV PRN (18:24)
[2022-01-04] MEDS: TEMAZEPAM 15 MG CAPSULE PO SCH (21:39)
[2022-01-04] MEDS: MELATONIN 3 MG TABLET PO PRN (21:39)
[2022-01-04] MEDS: FLUCONAZOLE INJ 200 MG/100 ML PREMIX IV SCH (21:40)
[2022-01-05] MEDS: FERROUS SULFATE 325 MG TABLET PO SCH ×3 (02:47→21:56)
[2022-01-05] MEDS: SODIUM BICARB INJ 50 MEQ in SODIUM CHLORIDE 0.45% 1,000 ML IV SCH ×3 (02:49→15:09)
[2022-01-05 06:00] LABS: Basophils # 0.1 10*3/uL (0.0-0.2); Eosinophils # 0.7 10*3/uL (0.0-0.87); Eosinophils % 7.5 % (0.00-10.9); Hematocrit 23.9 VOL% (35.7-47.0); Hemoglobin 7.3 GM/DL (12.0-16.0); Immature Granulocytes % 0.9 %; Immature Granulocytes Absolute 0.09 #; Lymphocytes # 1.7 10*3/uL (1.4-4.0); Lymphocytes % 17.3 % (21.3-54.2); Mean Corpuscular HGB Conc 30.5 GM/DL (32-36); Mean Corpuscular Volume 82.4 FL (87-102); Mean Platelet Volume 9.1 FL (9.6-12.0); Monocytes # 0.7 10*3/uL (0.11-0.8); Monocytes % 7.7 % (1.7-12.7); Neutrophils % 65.6 % (38.7-73.9); Platelet Count 350 T/CUMM (130-400); Red Cell Distribution Width 15.3 % (9.3-17.3); White Blood Count 9.6 T/CUMM (4-12)
[2022-01-05] MEDS: METOPROLOL TARTRATE 25 MG TABLET PO SCH ×2 (09:17→21:53)
[2022-01-05] MEDS: LACTULOSE 20 GM/30 ML UDCUP PO SCH (09:17)
[2022-01-05] MEDS: BISACODYL 10 MG SUPP RECTAL SCH (09:18)
[2022-01-05] MEDS: OXYBUTYNIN 5 MG TABLET PO SCH ×2 (09:18→21:53)
[2022-01-05] MEDS: INSULIN REGULAR 100 UNIT/ML SUBCUT SCH ×2 (09:20→16:33)
[2022-01-05] MEDS: NICOTINE 14 MG/24 HR PATCH TRANSDERM SCH (09:20)
[2022-01-05] MEDS ORDERED: TUBERCULIN SKIN TEST 0.1 ML SYRINGE INTRADERM ONE (10:27)
[2022-01-05] MEDS: cefTRIAXone 1,000 MG in SODIUM CHLORIDE 0.9% 100 ML IV SCH (16:34)
[2022-01-05] MEDS: TEMAZEPAM 15 MG CAPSULE PO SCH (21:53)
[2022-01-05] MEDS: MELATONIN 3 MG TABLET PO PRN (21:53)
[2022-01-05] MEDS: FLUCONAZOLE INJ 200 MG/100 ML PREMIX IV SCH (21:56)
[2022-01-05] MEDS: ACETAMINOPHEN 325 MG TABLET PO PRN (21:56)
[2022-01-06] MEDS: SODIUM BICARB INJ 50 MEQ in SODIUM CHLORIDE 0.45% 1,000 ML IV SCH ×2 (05:01→15:09)
[2022-01-06 06:15] LABS: Calcium 8.2 MG/DL (8.5-10.1); Osmolality,Calculated 288.7 MOS/KG (273-304); Potassium 4.6 MMOL/L (3.5-5.1)
[2022-01-06] MEDS: INSULIN REGULAR 100 UNIT/ML SUBCUT SCH ×2 (09:19→17:05)
[2022-01-06] MEDS: LACTULOSE 20 GM/30 ML UDCUP PO SCH (09:19)
[2022-01-06] MEDS: BISACODYL 10 MG SUPP RECTAL SCH (09:20)
[2022-01-06] MEDS: NICOTINE 14 MG/24 HR PATCH TRANSDERM SCH (09:20)
[2022-01-06] MEDS: METOPROLOL TARTRATE 25 MG TABLET PO SCH ×2 (09:21→21:09)
[2022-01-06] MEDS: FERROUS SULFATE 325 MG TABLET PO SCH ×2 (09:21→21:09)
[2022-01-06] MEDS: OXYBUTYNIN 5 MG TABLET PO SCH ×2 (09:21→21:09)
[2022-01-06] MEDS: FERRIC GLUCONATE COMPLEX 125 MG in SODIUM CHLORIDE 0.9% 100 ML IV SCH (09:28)
[2022-01-06 12:24] LABS: Calcium 8.2 MG/DL (8.5-10.1); Potassium 4.2 MMOL/L (3.5-5.1)
[2022-01-06] MEDS ORDERED: SODIUM CHLORIDE 0.9% 500 ML IV ONE (13:29)
[2022-01-06 15:52] LABS: Hematocrit 24.3 VOL% (35.7-47.0); Hemoglobin 7.3 GM/DL (12.0-16.0)
[2022-01-06] MEDS: cefTRIAXone 1,000 MG in SODIUM CHLORIDE 0.9% 100 ML IV SCH (17:01)
[2022-01-06] MEDS: FLUCONAZOLE INJ 200 MG/100 ML PREMIX IV SCH (21:09)
[2022-01-06] MEDS: MELATONIN 3 MG TABLET PO PRN (21:09)
[2022-01-06] MEDS: TEMAZEPAM 15 MG CAPSULE PO SCH (21:09)
[2022-01-07 00:11] LABS: RBC,Urine 43 /HPF (0-4)
[2022-01-07 00:12] LABS: Bilirubin,Urine Negative (Negative); Blood, Urine Moderate mg/dL (Negative); Glucose,Urine (UA) Negative (Negative); Ketones,Urine Negative (Negative); Nitrite,Urine Negative (Negative); Protein,Urine >=300 mg/dL (Negative); Urine Appearance CLOUDY (Clear); Urine Color Yellow (Yellow); Urine Urobilinogen 0.2 eU/dL (<2.0)
[2022-01-07] MEDS: SODIUM BICARB INJ 50 MEQ in SODIUM CHLORIDE 0.45% 1,000 ML IV SCH ×2 (03:10→16:19)
[2022-01-07 04:48] LABS: Basophils # 0.1 10*3/uL (0.0-0.2); Basophils % 0.7 % (0.0-0.8); Eosinophils # 0.6 10*3/uL (0.0-0.87); Eosinophils % 4.2 % (0.00-10.9); Hemoglobin 6.5 GM/DL (12.0-16.0); Immature Granulocytes % 0.8 %; Immature Granulocytes Absolute 0.12 #; Lymphocytes # 1.8 10*3/uL (1.4-4.0); Mean Platelet Volume 9.5 FL (9.6-12.0); Monocytes # 1.3 10*3/uL (0.11-0.8); Monocytes % 8.6 % (1.7-12.7); Neutrophils % 73.7 % (38.7-73.9); Platelet Count 249 T/CUMM (130-400); Red Cell Distribution Width 15.4 % (9.3-17.3)
[2022-01-07 05:05] LABS: Alanine Aminotransferase 15 U/L (13-56); Albumin 1.9 G/DL (3.4-5.0); Alkaline Phosphatase 81 U/L (45-117); Aspartate Amino Transferase 15 U/L (0-37); Bilirubin,Total < 0.39 MG/DL (0.20-1.00); Blood Urea Nitrogen 46 MG/DL (7-18); Carbon Dioxide 24 MMOL/L (21-32); Chloride 104 MMOL/L (98-107); Glucose 124 MG/DL (74-106); Osmolality,Calculated 280.2 MOS/KG (273-304); Potassium 3.9 MMOL/L (3.5-5.1); Sodium 134 MMOL/L (136-145); Total Protein 5.5 G/DL (6.4-8.2)
[2022-01-07] MEDS: INSULIN REGULAR 100 UNIT/ML SUBCUT SCH ×2 (07:34→17:36)
[2022-01-07] MEDS ORDERED: SODIUM CHLORIDE 0.9% 1,000 ML IV PRN (08:12)
[2022-01-07] MEDS: FERRIC GLUCONATE COMPLEX 125 MG in SODIUM CHLORIDE 0.9% 100 ML IV SCH (09:53)
[2022-01-07] MEDS: METOPROLOL TARTRATE 25 MG TABLET PO SCH ×2 (09:53→21:52)
[2022-01-07] MEDS: LACTULOSE 20 GM/30 ML UDCUP PO SCH (09:53)
[2022-01-07] MEDS: OXYBUTYNIN 5 MG TABLET PO SCH ×2 (09:53→21:52)
[2022-01-07] MEDS: BISACODYL 10 MG SUPP RECTAL SCH (09:53)
[2022-01-07] MEDS: FERROUS SULFATE 325 MG TABLET PO SCH ×2 (16:18→22:51)
[2022-01-07] MEDS: NICOTINE 14 MG/24 HR PATCH TRANSDERM SCH (16:18)
[2022-01-07] MEDS: cefTRIAXone 1,000 MG in SODIUM CHLORIDE 0.9% 100 ML IV SCH (16:35)
[2022-01-07] MEDS: TEMAZEPAM 15 MG CAPSULE PO SCH (21:51)
[2022-01-07] MEDS: MELATONIN 3 MG TABLET PO PRN (21:52)
[2022-01-07] MEDS: FLUCONAZOLE INJ 200 MG/100 ML PREMIX IV SCH (21:52)
[2022-01-08 05:17] LABS: Hematocrit 26.6 VOL% (35.7-47.0); Hemoglobin 8.2 GM/DL (12.0-16.0)
[2022-01-08 08:59] LABS: Calcium 8.2 MG/DL (8.5-10.1); Osmolality,Calculated 287.8 MOS/KG (273-304)
[2022-01-08] MEDS: METOPROLOL TARTRATE 25 MG TABLET PO SCH ×2 (09:24→21:34)
[2022-01-08] MEDS: FERRIC GLUCONATE COMPLEX 125 MG in SODIUM CHLORIDE 0.9% 100 ML IV SCH (09:24)
[2022-01-08] MEDS: LACTULOSE 20 GM/30 ML UDCUP PO SCH (09:24)
[2022-01-08] MEDS: OXYBUTYNIN 5 MG TABLET PO SCH ×2 (09:24→21:34)
[2022-01-08] MEDS: BISACODYL 10 MG SUPP RECTAL SCH (09:25)
[2022-01-08] MEDS: FERROUS SULFATE 325 MG TABLET PO SCH ×2 (09:25→21:33)
[2022-01-08] MEDS: NICOTINE 14 MG/24 HR PATCH TRANSDERM SCH (09:26)
[2022-01-08] MEDS: INSULIN REGULAR 100 UNIT/ML SUBCUT SCH ×2 (09:28→18:14)
[2022-01-08] MEDS: SODIUM BICARB INJ 50 MEQ in SODIUM CHLORIDE 0.45% 1,000 ML IV SCH ×2 (16:14→16:15)
[2022-01-08] MEDS: cefTRIAXone 1,000 MG in SODIUM CHLORIDE 0.9% 100 ML IV SCH (18:13)
[2022-01-08] MEDS: TEMAZEPAM 15 MG CAPSULE PO SCH (21:33)
[2022-01-08] MEDS: MELATONIN 3 MG TABLET PO PRN (21:34)
[2022-01-09] MEDS: SODIUM BICARB INJ 50 MEQ in SODIUM CHLORIDE 0.45% 1,000 ML IV SCH ×2 (04:20→13:53)
[2022-01-09 05:28] LABS: Basophils # 0.1 10*3/uL (0.0-0.2); Basophils % 0.9 % (0.0-0.8); Eosinophils # 0.7 10*3/uL (0.0-0.87); Eosinophils % 9.4 % (0.00-10.9); Hematocrit 27.9 VOL% (35.7-47.0); Hemoglobin 8.7 GM/DL (12.0-16.0); Immature Granulocytes % 0.4 %; Immature Granulocytes Absolute 0.03 #; Lymphocytes # 1.1 10*3/uL (1.4-4.0); Lymphocytes % 15.5 % (21.3-54.2); Mean Corpuscular HGB Conc 31.2 GM/DL (32-36); Mean Corpuscular Volume 83.5 FL (87-102); Mean Platelet Volume 9.4 FL (9.6-12.0); Monocytes # 0.9 10*3/uL (0.11-0.8); Monocytes % 12.4 % (1.7-12.7); Neutrophils % 61.4 % (38.7-73.9); Platelet Count 272 T/CUMM (130-400); Red Blood Count 3.34 MC/CUMM (3.8-5.5); Red Cell Distribution Width 15.4 % (9.3-17.3)
[2022-01-09 05:43] LABS: Calcium 8.4 MG/DL (8.5-10.1); Osmolality,Calculated 285.8 MOS/KG (273-304); Potassium 4.2 MMOL/L (3.5-5.1)
[2022-01-09] MEDS: INSULIN REGULAR 100 UNIT/ML SUBCUT SCH ×3 (10:01→19:02)
[2022-01-09] MEDS: LACTULOSE 20 GM/30 ML UDCUP PO SCH ×2 (10:02→23:00)
[2022-01-09] MEDS: OXYBUTYNIN 5 MG TABLET PO SCH ×2 (10:03→22:59)
[2022-01-09] MEDS: BISACODYL 10 MG SUPP RECTAL SCH ×2 (10:03→23:06)
[2022-01-09] MEDS: FERROUS SULFATE 325 MG TABLET PO SCH ×2 (10:03→22:58)
[2022-01-09] MEDS: NICOTINE 14 MG/24 HR PATCH TRANSDERM SCH (10:03)
[2022-01-09] MEDS: METOPROLOL TARTRATE 25 MG TABLET PO SCH ×2 (10:04→22:58)
[2022-01-09] MEDS: FERRIC GLUCONATE COMPLEX 125 MG in SODIUM CHLORIDE 0.9% 100 ML IV SCH (10:16)
[2022-01-09] MEDS ORDERED: MAGNESIUM SULF RIDER 2 GM/50 ML PREMIX IV PRN (14:01)
[2022-01-09] MEDS ORDERED: MAGNESIUM SULF RIDER 4 GM/100 ML PREMIX IV PRN (14:01)
[2022-01-09] MEDS: TEMAZEPAM 15 MG CAPSULE PO SCH (22:58)
[2022-01-09] MEDS: MELATONIN 3 MG TABLET PO PRN (22:58)
[2022-01-10 06:52] LABS: Basophils # 0.1 10*3/uL (0.0-0.2); Basophils % 1.3 % (0.0-0.8); Eosinophils # 0.5 10*3/uL (0.0-0.87); Eosinophils % 8.3 % (0.00-10.9); Hematocrit 25.9 VOL% (35.7-47.0); Hemoglobin 8.1 GM/DL (12.0-16.0); Immature Granulocytes % 0.6 %; Immature Granulocytes Absolute 0.03 #; Lymphocytes % 17.5 % (21.3-54.2); Mean Corpuscular HGB Conc 31.3 GM/DL (32-36); Mean Corpuscular Volume 83.3 FL (87-102); Mean Platelet Volume 9.9 FL (9.6-12.0); Monocytes % 17.5 % (1.7-12.7); Neutrophils % 54.8 % (38.7-73.9); Platelet Count 304 T/CUMM (130-400); Red Blood Count 3.11 MC/CUMM (3.8-5.5); Red Cell Distribution Width 15.6 % (9.3-17.3); White Blood Count 5.4 T/CUMM (4-12)
[2022-01-10 07:09] LABS: Calcium 8.5 MG/DL (8.5-10.1); Potassium 3.8 MMOL/L (3.5-5.1)
[2022-01-10 07:17] LABS: Band Neutrophils 4 % (0-10); Eosinophils 14 % (0-10); Lymphocytes 16 % (20-55); Total Cells Counted 100
[2022-01-10 07:18] LABS: Hypochromia Slight; Microcytosis 1+
[2022-01-10 07:19] LABS: Ovalocytes Slight; Platelet Estimate Normal
[2022-01-10] MEDS: INSULIN REGULAR 100 UNIT/ML SUBCUT SCH ×2 (08:16→17:03)
[2022-01-10] MEDS: LACTULOSE 20 GM/30 ML UDCUP PO SCH ×2 (10:36→22:56)
[2022-01-10] MEDS: METOPROLOL TARTRATE 25 MG TABLET PO SCH ×2 (10:37→22:55)
[2022-01-10] MEDS: OXYBUTYNIN 5 MG TABLET PO SCH ×2 (10:37→22:55)
[2022-01-10] MEDS: BISACODYL 10 MG SUPP RECTAL SCH (10:37)
[2022-01-10] MEDS: FERROUS SULFATE 325 MG TABLET PO SCH ×2 (10:38→22:56)
[2022-01-10] MEDS: NICOTINE 14 MG/24 HR PATCH TRANSDERM SCH (10:43)
[2022-01-10] MEDS: FERRIC GLUCONATE COMPLEX 125 MG in SODIUM CHLORIDE 0.9% 100 ML IV SCH (10:44)
[2022-01-10] MEDS: SODIUM BICARB INJ 50 MEQ in SODIUM CHLORIDE 0.45% 1,000 ML IV SCH ×2 (16:21)
[2022-01-10] MEDS: hydrALAZINE 20 MG/1 ML VIAL IV PRN (17:05)
[2022-01-10] MEDS: MELATONIN 3 MG TABLET PO PRN (22:55)
[2022-01-10] MEDS: TEMAZEPAM 15 MG CAPSULE PO SCH (22:55)
[2022-01-11 05:01] LABS: Basophils # 0.1 10*3/uL (0.0-0.2); Basophils % 1.1 % (0.0-0.8); Eosinophils # 0.4 10*3/uL (0.0-0.87); Eosinophils % 7.2 % (0.00-10.9); Hematocrit 26.1 VOL% (35.7-47.0); Hemoglobin 7.9 GM/DL (12.0-16.0); Immature Granulocytes % 0.7 %; Immature Granulocytes Absolute 0.04 #; Lymphocytes % 17.6 % (21.3-54.2); Mean Corpuscular HGB Conc 30.3 GM/DL (32-36); Mean Corpuscular Volume 84.2 FL (87-102); Mean Platelet Volume 9.2 FL (9.6-12.0); Monocytes % 17.8 % (1.7-12.7); Neutrophils % 55.6 % (38.7-73.9); Platelet Count 308 T/CUMM (130-400); Red Cell Distribution Width 15.6 % (9.3-17.3); White Blood Count 5.6 T/CUMM (4-12)
[2022-01-11 05:18] LABS: Calcium 8.2 MG/DL (8.5-10.1); Osmolality,Calculated 284.1 MOS/KG (273-304); Potassium 4.1 MMOL/L (3.5-5.1)
[2022-01-11 05:23] LABS: Band Neutrophils 1 % (0-10); Eosinophils 9 % (0-10); Hypochromia Slight; Lymphocytes 14 % (20-55); Microcytosis Slight; Platelet Estimate Adequate; Total Cells Counted 100
[2022-01-11] MEDS: INSULIN REGULAR 100 UNIT/ML SUBCUT SCH (08:20)
[2022-01-11] MEDS: LACTULOSE 20 GM/30 ML UDCUP PO SCH (10:59)
[2022-01-11] MEDS: FERROUS SULFATE 325 MG TABLET PO SCH (11:00)
[2022-01-11] MEDS: OXYBUTYNIN 5 MG TABLET PO SCH (11:00)
[2022-01-11] MEDS: NICOTINE 14 MG/24 HR PATCH TRANSDERM SCH (11:01)
[2022-01-11] MEDS: METOPROLOL TARTRATE 25 MG TABLET PO SCH (11:01)
[2022-01-11] MEDS: BISACODYL 10 MG SUPP RECTAL SCH (11:01)
[2022-01-11] MEDS: FERRIC GLUCONATE COMPLEX 125 MG in SODIUM CHLORIDE 0.9% 100 ML IV SCH (11:02)
[2022-01-11] MEDS: SODIUM BICARB INJ 50 MEQ in SODIUM CHLORIDE 0.45% 1,000 ML IV SCH (11:02)
[2022-01-11 14:01] VITALS: BP 148/69
== END 2022-01-11 13:55 | DRG 683 ==
LOC: EDSEX → EDUNIT# → EDBD → N.ED 12:48 → N.EDINP 18:03 → N.5E 21:14
PROVIDERS: ADMIT Family Medicine; ATTEND Family Medicine

== ENCOUNTER 2022-02-04 18:58 | Inpatient (IN) ==
[2022-02-04] MEDS ORDERED: LABETALOL 20 MG/4 ML SYRINGE IV STA (19:36)
[2022-02-04] MEDS ORDERED: LIDOCAINE 1% 20 ML VIAL INFILTRAT STA (20:43)
[2022-02-04] MEDS ORDERED: DIPHTHERIA/TETANUS ADULT VACCINE 0.5 ML SYRINGE IM ONE (20:43)
[2022-02-04 21:00] LABS: Basophils % 0.2 % (0.0-0.8); Eosinophils % 0.1 % (0.00-10.9); Hematocrit 27.6 VOL% (35.7-47.0); Hemoglobin 9.1 GM/DL (12.0-16.0); Immature Granulocytes % 0.7 %; Immature Granulocytes Absolute 0.11 #; Lymphocytes # 0.4 10*3/uL (1.4-4.0); Lymphocytes % 2.4 % (21.3-54.2); Mean Corpuscular Volume 79.1 FL (87-102); Mean Platelet Volume 8.6 FL (9.6-12.0); Monocytes # 0.5 10*3/uL (0.11-0.8); Monocytes % 3.4 % (1.7-12.7); Neutrophils % 93.2 % (38.7-73.9); Platelet Count 426 T/CUMM (130-400); Red Blood Count 3.49 MC/CUMM (3.8-5.5); Red Cell Distribution Width 15.1 % (9.3-17.3); White Blood Count 14.8 T/CUMM (4-12)
[2022-02-04 21:10] LABS: INR 0.9; PT Patient Result 10.5 SECS (10.5-12.0)
[2022-02-04 21:18] LABS: Anisocytosis Slight; Band Neutrophils 1 % (0-10); Lymphocytes 1 % (20-55); Total Cells Counted 100
[2022-02-04 21:19] LABS: Elliptocytes Few; Hypochromia Slight; Platelet Estimate Adequate
[2022-02-04 21:20] LABS: Alanine Aminotransferase 21 U/L (13-56); Albumin 3.2 G/DL (3.4-5.0); Alkaline Phosphatase 150 U/L (45-117); Aspartate Amino Transferase 18 U/L (0-37); Bilirubin,Total < 0.39 MG/DL (0.20-1.00); Blood Urea Nitrogen 100 MG/DL (7-18); Calcium 8.9 MG/DL (8.5-10.1); Carbon Dioxide 23 MMOL/L (21-32); Chloride 83 MMOL/L (98-107); Glucose 169 MG/DL (74-106); Total Protein 7.3 G/DL (6.4-8.2)
[2022-02-04 21:30] LABS: Sodium 114 MMOL/L (136-145)
[2022-02-04 21:31] LABS: Potassium 7.3 MMOL/L (3.5-5.1)
[2022-02-04 22:22] LABS: RBC,Urine 9 /HPF (0-4); Squamous Epithelial Cell,Urine Occasional /HPF (0-10)
[2022-02-04 22:23] LABS: Urine Appearance CLOUDY (Clear); Urine Color Yellow (Yellow)
[2022-02-04 22:24] LABS: Bilirubin,Urine Negative (Negative); Blood, Urine Moderate mg/dL (Negative); Glucose,Urine (UA) Negative (Negative); Ketones,Urine Negative (Negative); Nitrite,Urine Negative (Negative); Protein,Urine 100 mg/dL (Negative); Urine Urobilinogen 0.2 eU/dL (<2.0)
[2022-02-04] MEDS ORDERED: INSULIN REGULAR 100 UNIT/ML IV STA (22:32)
[2022-02-04] MEDS ORDERED: DEXTROSE 50% 25 GM/50 ML VIAL IV STA (22:32)
[2022-02-04] MEDS ORDERED: PIPERACILLIN/TAZOBACTAM 3,375 MG in SODIUM CHLORIDE 0.9% 100 ML IV STA (22:36)
[2022-02-04] MEDS ORDERED: DEXTROSE 50% 25 GM/50 ML SYRINGE IV STA (22:39)
[2022-02-04] MEDS ORDERED: ALBUTEROL 2.5 MG/3 ML NEB RESP TX STA (22:39)
[2022-02-04] MEDS: SODIUM CHLORIDE 0.9% 1,000 ML IV SCH (23:20)
[2022-02-05] MEDS: ACETAMINOPHEN 325 MG TABLET PO PRN ×2 (02:40→12:51)
[2022-02-05] MEDS: ONDANSETRON 4 MG/2 ML VIAL IV PRN (02:40)
[2022-02-05] MEDS ORDERED: DEXTROSE 10% 250 ML IV ONE (03:00)
[2022-02-05] MEDS ORDERED: INSULIN REGULAR 100 UNIT/ML IV ONE (03:00)
[2022-02-05 05:45] LABS: Basophils % 0.4 % (0.0-0.8); Eosinophils % 0.4 % (0.00-10.9); Hematocrit 26.7 VOL% (35.7-47.0); Hemoglobin 8.8 GM/DL (12.0-16.0); Immature Granulocytes % 0.8 %; Immature Granulocytes Absolute 0.09 #; Lymphocytes % 9.5 % (21.3-54.2); Mean Corpuscular Volume 79.2 FL (87-102); Mean Platelet Volume 9.1 FL (9.6-12.0); Monocytes # 0.9 10*3/uL (0.11-0.8); Monocytes % 8.1 % (1.7-12.7); Neutrophils % 80.8 % (38.7-73.9); Platelet Count 423 T/CUMM (130-400); Red Blood Count 3.37 MC/CUMM (3.8-5.5); Red Cell Distribution Width 15.3 % (9.3-17.3); White Blood Count 10.8 T/CUMM (4-12)
[2022-02-05 06:03] LABS: Albumin 2.8 G/DL (3.4-5.0); Bilirubin,Total 0.4 MG/DL (0.20-1.00); Osmolality,Calculated 263.9 MOS/KG (273-304); Total Protein 7.2 G/DL (6.4-8.2)
[2022-02-05 06:07] LABS: Potassium 6.3 MMOL/L (3.5-5.1)
[2022-02-05] MEDS: PIPERACILLIN/TAZOBACTAM 3,375 MG in SODIUM CHLORIDE 0.9% 100 ML IV SCH ×2 (09:38→22:27)
[2022-02-05] MEDS: METOPROLOL TARTRATE 25 MG TABLET PO SCH ×2 (09:43→21:04)
[2022-02-05] MEDS: PANTOPRAZOLE 40 MG TABLET PO SCH (09:43)
[2022-02-05] MEDS: SODIUM CHLORIDE 0.9% 1,000 ML IV SCH ×2 (11:11→15:34)
[2022-02-05] MEDS ORDERED: GLUCAGON 1 MG VIAL IM PRN (11:36)
[2022-02-05] MEDS ORDERED: DEXTROSE 10% 250 ML BAG IV PRN (11:39)
[2022-02-05] MEDS: SODIUM ZIRCONIUM CYCLOSILICATE 10 GM PACK PO SCH ×2 (16:37→21:04)
[2022-02-05 17:53] LABS: Calcium 8.7 MG/DL (8.5-10.1); Osmolality,Calculated 271.2 MOS/KG (273-304)
[2022-02-05] MEDS: INSULIN LISPRO 100 UNIT/ML SUBCUT SCH ×2 (18:06→21:05)
[2022-02-05 18:38] LABS: Potassium 6.5 MMOL/L (3.5-5.1)
[2022-02-05] MEDS ORDERED: OXYBUTYNIN 5 MG TABLET PO SCH (21:00)
[2022-02-05] MEDS: TEMAZEPAM 15 MG CAPSULE PO SCH (21:04)
[2022-02-05] MEDS: MELATONIN 3 MG TABLET PO PRN (22:27)
[2022-02-06 05:50] LABS: Basophils # 0.1 10*3/uL (0.0-0.2); Basophils % 0.5 % (0.0-0.8); Eosinophils # 0.1 10*3/uL (0.0-0.87); Eosinophils % 1.3 % (0.00-10.9); Hematocrit 27.8 VOL% (35.7-47.0); Hemoglobin 9.1 GM/DL (12.0-16.0); Immature Granulocytes % 0.6 %; Immature Granulocytes Absolute 0.06 #; Lymphocytes # 0.9 10*3/uL (1.4-4.0); Lymphocytes % 9.6 % (21.3-54.2); Mean Corpuscular HGB Conc 32.7 GM/DL (32-36); Mean Corpuscular Volume 81.8 FL (87-102); Monocytes # 0.9 10*3/uL (0.11-0.8); Monocytes % 8.9 % (1.7-12.7); Neutrophils % 79.1 % (38.7-73.9); Platelet Count 389 T/CUMM (130-400); Red Cell Distribution Width 15.6 % (9.3-17.3); White Blood Count 9.7 T/CUMM (4-12)
[2022-02-06 06:09] LABS: Albumin 2.7 G/DL (3.4-5.0); Bilirubin,Total 0.4 MG/DL (0.20-1.00); Calcium 9.2 MG/DL (8.5-10.1); Osmolality,Calculated 268.2 MOS/KG (273-304); Phosphorous 4.5 MG/DL (2.5-4.9); Total Protein 7.4 G/DL (6.4-8.2)
[2022-02-06 06:12] LABS: Potassium 6.1 MMOL/L (3.5-5.1)
[2022-02-06 07:37] LABS: % Iron Saturation 16.3 % (18-50); Ferritin 735.5 ng/mL (8-252)
[2022-02-06] MEDS: INSULIN LISPRO 100 UNIT/ML SUBCUT SCH ×4 (08:39→22:07)
[2022-02-06] MEDS: SODIUM CHLORIDE 0.9% 1,000 ML IV SCH ×3 (10:19→15:10)
[2022-02-06] MEDS: METOPROLOL TARTRATE 25 MG TABLET PO SCH ×2 (10:20→22:05)
[2022-02-06] MEDS: PANTOPRAZOLE 40 MG TABLET PO SCH (10:20)
[2022-02-06] MEDS: MAGNESIUM OXIDE 400 MG TABLET PO SCH (10:20)
[2022-02-06] MEDS: PIPERACILLIN/TAZOBACTAM 3,375 MG in SODIUM CHLORIDE 0.9% 100 ML IV SCH ×2 (10:21→22:05)
[2022-02-06] MEDS: SODIUM ZIRCONIUM CYCLOSILICATE 10 GM PACK PO SCH ×3 (10:32→22:04)
[2022-02-06] MEDS: NICOTINE 14 MG/24 HR PATCH TRANSDERM SCH (10:32)
[2022-02-06] MEDS ORDERED: SODIUM POLYSTYRENE SULFATE 15 GM/60 ML BOTTLE PO STA (15:29)
[2022-02-06 15:46] LABS: Calcium 8.6 MG/DL (8.5-10.1); Osmolality,Calculated 277.1 MOS/KG (273-304); Potassium 5.5 MMOL/L (3.5-5.1)
[2022-02-06] MEDS ORDERED: SODIUM POLYSTYRENE SULFATE 15 GM/60 ML BOTTLE PO ONE (20:00)
[2022-02-06] MEDS: MELATONIN 3 MG TABLET PO PRN (23:03)
[2022-02-06] MEDS: ACETAMINOPHEN 325 MG TABLET PO PRN (23:03)
[2022-02-07] MEDS: TEMAZEPAM 15 MG CAPSULE PO SCH ×2 (00:14→23:17)
[2022-02-07 05:04] LABS: Basophils # 0.1 10*3/uL (0.0-0.2); Eosinophils # 0.1 10*3/uL (0.0-0.87); Eosinophils % 2.8 % (0.00-10.9); Hematocrit 23.8 VOL% (35.7-47.0); Hemoglobin 7.7 GM/DL (12.0-16.0); Immature Granulocytes % 0.6 %; Immature Granulocytes Absolute 0.03 #; Lymphocytes % 19.3 % (21.3-54.2); Mean Corpuscular HGB Conc 32.4 GM/DL (32-36); Mean Corpuscular Volume 81.2 FL (87-102); Mean Platelet Volume 9.1 FL (9.6-12.0); Monocytes # 0.5 10*3/uL (0.11-0.8); Monocytes % 9.2 % (1.7-12.7); Neutrophils % 67.1 % (38.7-73.9); Platelet Count 366 T/CUMM (130-400); Red Blood Count 2.93 MC/CUMM (3.8-5.5); Red Cell Distribution Width 15.5 % (9.3-17.3); White Blood Count 5.1 T/CUMM (4-12)
[2022-02-07 05:49] LABS: Alanine Aminotransferase 36 U/L (13-56); Albumin 2.3 G/DL (3.4-5.0); Alkaline Phosphatase 151 U/L (45-117); Aspartate Amino Transferase 31 U/L (0-37); Bilirubin,Total < 0.39 MG/DL (0.20-1.00); Blood Urea Nitrogen 83 MG/DL (7-18); Calcium 8.3 MG/DL (8.5-10.1); Carbon Dioxide 25 MMOL/L (21-32); Chloride 93 MMOL/L (98-107); Glucose 233 MG/DL (74-106); Osmolality,Calculated 289.9 MOS/KG (273-304); Potassium 3.5 MMOL/L (3.5-5.1); Sodium 129 MMOL/L (136-145); Total Protein 6.5 G/DL (6.4-8.2)
[2022-02-07] MEDS: SODIUM CHLORIDE 0.9% 1,000 ML IV SCH ×3 (06:05→23:04)
[2022-02-07] MEDS: ONDANSETRON 4 MG/2 ML VIAL IV PRN ×2 (06:50→23:02)
[2022-02-07] MEDS ORDERED: SODIUM POLYSTYRENE SULFATE 15 GM/60 ML BOTTLE PO ONE (09:00)
[2022-02-07] MEDS: PANTOPRAZOLE 40 MG TABLET PO SCH (09:05)
[2022-02-07] MEDS: MAGNESIUM OXIDE 400 MG TABLET PO SCH (09:05)
[2022-02-07] MEDS: PIPERACILLIN/TAZOBACTAM 3,375 MG in SODIUM CHLORIDE 0.9% 100 ML IV SCH ×2 (09:05→23:00)
[2022-02-07] MEDS: METOPROLOL TARTRATE 25 MG TABLET PO SCH ×2 (09:05→23:01)
[2022-02-07] MEDS: NICOTINE 14 MG/24 HR PATCH TRANSDERM SCH (09:05)
[2022-02-07] MEDS: SODIUM ZIRCONIUM CYCLOSILICATE 10 GM PACK PO SCH ×3 (09:06→23:01)
[2022-02-07] MEDS: INSULIN LISPRO 100 UNIT/ML SUBCUT SCH ×4 (09:55→23:01)
[2022-02-07] MEDS: MELATONIN 3 MG TABLET PO PRN (23:01)
[2022-02-07] MEDS: ACETAMINOPHEN 325 MG TABLET PO PRN (23:01)
[2022-02-08 05:20] LABS: Basophils # 0.1 10*3/uL (0.0-0.2); Basophils % 0.8 % (0.0-0.8); Eosinophils # 0.4 10*3/uL (0.0-0.87); Eosinophils % 5.4 % (0.00-10.9); Hematocrit 24.4 VOL% (35.7-47.0); Hemoglobin 7.7 GM/DL (12.0-16.0); Immature Granulocytes % 0.5 %; Immature Granulocytes Absolute 0.04 #; Lymphocytes % 13.4 % (21.3-54.2); Mean Corpuscular HGB Conc 31.6 GM/DL (32-36); Mean Corpuscular Volume 83.8 FL (87-102); Mean Platelet Volume 8.9 FL (9.6-12.0); Monocytes # 0.5 10*3/uL (0.11-0.8); Monocytes % 7.1 % (1.7-12.7); Neutrophils % 72.8 % (38.7-73.9); Platelet Count 371 T/CUMM (130-400); Red Blood Count 2.91 MC/CUMM (3.8-5.5); Red Cell Distribution Width 15.9 % (9.3-17.3); White Blood Count 7.6 T/CUMM (4-12)
[2022-02-08 05:42] LABS: Alanine Aminotransferase 35 U/L (13-56); Albumin 2.2 G/DL (3.4-5.0); Alkaline Phosphatase 130 U/L (45-117); Aspartate Amino Transferase 26 U/L (0-37); Bilirubin,Total < 0.39 MG/DL (0.20-1.00); Blood Urea Nitrogen 71 MG/DL (7-18); Calcium 8.1 MG/DL (8.5-10.1); Carbon Dioxide 26 MMOL/L (21-32); Chloride 102 MMOL/L (98-107); Glucose 134 MG/DL (74-106); Potassium 3.4 MMOL/L (3.5-5.1); Sodium 136 MMOL/L (136-145); Total Protein 6.2 G/DL (6.4-8.2)
[2022-02-08] MEDS: NICOTINE 14 MG/24 HR PATCH TRANSDERM SCH (09:35)
[2022-02-08] MEDS: SODIUM CHLORIDE 0.9% 1,000 ML IV SCH ×2 (09:35→19:19)
[2022-02-08] MEDS: METOPROLOL TARTRATE 25 MG TABLET PO SCH ×2 (09:35→20:58)
[2022-02-08] MEDS: MAGNESIUM OXIDE 400 MG TABLET PO SCH (09:35)
[2022-02-08] MEDS: PANTOPRAZOLE 40 MG TABLET PO SCH (09:35)
[2022-02-08] MEDS: INSULIN LISPRO 100 UNIT/ML SUBCUT SCH ×4 (09:43→20:57)
[2022-02-08] MEDS: PIPERACILLIN/TAZOBACTAM 3,375 MG in SODIUM CHLORIDE 0.9% 100 ML IV SCH ×2 (09:45→20:56)
[2022-02-08] MEDS: TEMAZEPAM 15 MG CAPSULE PO SCH (20:58)
[2022-02-08] MEDS: ACETAMINOPHEN 325 MG TABLET PO PRN (21:29)
[2022-02-09] MEDS: MELATONIN 3 MG TABLET PO PRN ×2 (02:10→20:44)
[2022-02-09] MEDS: SODIUM CHLORIDE 0.9% 1,000 ML IV SCH ×3 (02:10→22:59)
[2022-02-09 05:08] LABS: Basophils # 0.1 10*3/uL (0.0-0.2); Basophils % 0.8 % (0.0-0.8); Eosinophils # 0.5 10*3/uL (0.0-0.87); Hematocrit 24.3 VOL% (35.7-47.0); Hemoglobin 7.6 GM/DL (12.0-16.0); Immature Granulocytes % 0.7 %; Immature Granulocytes Absolute 0.06 #; Lymphocytes # 1.1 10*3/uL (1.4-4.0); Lymphocytes % 12.8 % (21.3-54.2); Mean Corpuscular HGB Conc 31.3 GM/DL (32-36); Mean Platelet Volume 8.6 FL (9.6-12.0); Monocytes # 0.8 10*3/uL (0.11-0.8); Neutrophils % 70.7 % (38.7-73.9); Platelet Count 348 T/CUMM (130-400); Red Blood Count 2.86 MC/CUMM (3.8-5.5); Red Cell Distribution Width 15.9 % (9.3-17.3); White Blood Count 8.8 T/CUMM (4-12)
[2022-02-09 05:33] LABS: Alanine Aminotransferase 30 U/L (13-56); Alkaline Phosphatase 143 U/L (45-117); Aspartate Amino Transferase 20 U/L (0-37); Bilirubin,Total < 0.39 MG/DL (0.20-1.00); Blood Urea Nitrogen 59 MG/DL (7-18); Calcium 7.9 MG/DL (8.5-10.1); Carbon Dioxide 24 MMOL/L (21-32); Chloride 105 MMOL/L (98-107); Glucose 234 MG/DL (74-106); Osmolality,Calculated 297.8 MOS/KG (273-304); Potassium 4.2 MMOL/L (3.5-5.1); Sodium 137 MMOL/L (136-145)
[2022-02-09 08:18] LABS: Total Protein (Chem) 7.5 G/DL (6.4-8.3)
[2022-02-09 08:49] LABS: Albumin (SPE) 4.1 G/DL (3.2-5.3); Albumin (SPE) Rel % 54.3 %; Alpha 1 (SPE) 0.4 G/DL (0.1-0.4); Alpha 2 (SPE) Rel % 13.3 %; Beta (SPE) 0.9 G/DL (0.5-1.1); Beta (SPE) Rel % 11.8 %; Gamma (SPE) Rel % 15.6 %
[2022-02-09] MEDS: PIPERACILLIN/TAZOBACTAM 3,375 MG in SODIUM CHLORIDE 0.9% 100 ML IV SCH ×2 (09:58→20:47)
[2022-02-09] MEDS: MAGNESIUM OXIDE 400 MG TABLET PO SCH (09:58)
[2022-02-09] MEDS: PANTOPRAZOLE 40 MG TABLET PO SCH (09:59)
[2022-02-09] MEDS: INSULIN LISPRO 100 UNIT/ML SUBCUT SCH ×4 (09:59→20:42)
[2022-02-09] MEDS: METOPROLOL TARTRATE 25 MG TABLET PO SCH ×2 (09:59→20:42)
[2022-02-09] MEDS: NICOTINE 14 MG/24 HR PATCH TRANSDERM SCH (10:03)
[2022-02-09 10:28] LABS: Gamma (SPE) 1.2 G/DL (0.7-1.7)
[2022-02-09] MEDS: ACETAMINOPHEN 325 MG TABLET PO PRN ×2 (13:40→20:44)
[2022-02-09 16:06] LABS: Myeloperoxidase Antibodies SEE COMMENTS
[2022-02-09] MEDS: TEMAZEPAM 15 MG CAPSULE PO SCH (20:41)
[2022-02-10 04:24] LABS: Basophils # 0.1 10*3/uL (0.0-0.2); Basophils % 0.8 % (0.0-0.8); Eosinophils # 0.5 10*3/uL (0.0-0.87); Hematocrit 24.2 VOL% (35.7-47.0); Hemoglobin 7.4 GM/DL (12.0-16.0); Immature Granulocytes % 0.9 %; Immature Granulocytes Absolute 0.08 #; Lymphocytes # 1.4 10*3/uL (1.4-4.0); Lymphocytes % 16.7 % (21.3-54.2); Mean Corpuscular HGB Conc 30.6 GM/DL (32-36); Mean Corpuscular Volume 87.4 FL (87-102); Mean Platelet Volume 8.8 FL (9.6-12.0); Monocytes % 11.6 % (1.7-12.7); Platelet Count 337 T/CUMM (130-400); Red Blood Count 2.77 MC/CUMM (3.8-5.5); Red Cell Distribution Width 16.1 % (9.3-17.3); White Blood Count 8.5 T/CUMM (4-12)
[2022-02-10 04:46] LABS: Alanine Aminotransferase 26 U/L (13-56); Alkaline Phosphatase 136 U/L (45-117); Aspartate Amino Transferase 12 U/L (0-37); Bilirubin,Total < 0.39 MG/DL (0.20-1.00); Blood Urea Nitrogen 58 MG/DL (7-18); Calcium 8.3 MG/DL (8.5-10.1); Carbon Dioxide 23 MMOL/L (21-32); Chloride 105 MMOL/L (98-107); Glucose 194 MG/DL (74-106); Osmolality,Calculated 290.1 MOS/KG (273-304); Sodium 135 MMOL/L (136-145)
[2022-02-10] MEDS: INSULIN LISPRO 100 UNIT/ML SUBCUT SCH ×4 (07:42→21:06)
[2022-02-10] MEDS: NICOTINE 14 MG/24 HR PATCH TRANSDERM SCH (08:41)
[2022-02-10] MEDS: METOPROLOL TARTRATE 25 MG TABLET PO SCH ×2 (08:42→21:06)
[2022-02-10] MEDS: PANTOPRAZOLE 40 MG TABLET PO SCH (08:42)
[2022-02-10] MEDS: MAGNESIUM OXIDE 400 MG TABLET PO SCH (08:43)
[2022-02-10] MEDS: PIPERACILLIN/TAZOBACTAM 3,375 MG in SODIUM CHLORIDE 0.9% 100 ML IV SCH ×2 (08:43→21:04)
[2022-02-10] MEDS: SODIUM CHLORIDE 0.9% 1,000 ML IV SCH ×2 (08:45→19:09)
[2022-02-10 13:56] LABS: Antinuclear Ab, S 0.3 U
[2022-02-10] MEDS: TEMAZEPAM 15 MG CAPSULE PO SCH (21:05)
[2022-02-10] MEDS: MELATONIN 3 MG TABLET PO PRN (21:06)
[2022-02-10] MEDS: ACETAMINOPHEN 325 MG TABLET PO PRN (21:06)
[2022-02-11 05:13] LABS: Basophils # 0.1 10*3/uL (0.0-0.2); Basophils % 0.9 % (0.0-0.8); Eosinophils # 0.6 10*3/uL (0.0-0.87); Hematocrit 23.4 VOL% (35.7-47.0); Hemoglobin 7.1 GM/DL (12.0-16.0); Immature Granulocytes % 0.7 %; Immature Granulocytes Absolute 0.05 #; Lymphocytes # 1.3 10*3/uL (1.4-4.0); Lymphocytes % 19.1 % (21.3-54.2); Mean Corpuscular HGB Conc 30.3 GM/DL (32-36); Mean Corpuscular Volume 86.7 FL (87-102); Mean Platelet Volume 8.4 FL (9.6-12.0); Monocytes # 0.9 10*3/uL (0.11-0.8); Monocytes % 13.2 % (1.7-12.7); Neutrophils % 58.1 % (38.7-73.9); Platelet Count 296 T/CUMM (130-400); Red Cell Distribution Width 16.3 % (9.3-17.3)
[2022-02-11 05:25] LABS: Alanine Aminotransferase 22 U/L (13-56); Alkaline Phosphatase 132 U/L (45-117); Aspartate Amino Transferase 11 U/L (0-37); Bilirubin,Total < 0.39 MG/DL (0.20-1.00); Blood Urea Nitrogen 57 MG/DL (7-18); Carbon Dioxide 21 MMOL/L (21-32); Chloride 107 MMOL/L (98-107); Glucose 247 MG/DL (74-106); Potassium 3.7 MMOL/L (3.5-5.1); Sodium 136 MMOL/L (136-145); Total Protein 5.9 G/DL (6.4-8.2)
[2022-02-11] MEDS: SODIUM CHLORIDE 0.9% 1,000 ML IV SCH (05:38)
[2022-02-11] MEDS ORDERED: TUBERCULIN SKIN TEST 0.1 ML SYRINGE INTRADERM ONE (07:12)
[2022-02-11] MEDS: PANTOPRAZOLE 40 MG TABLET PO SCH (10:05)
[2022-02-11] MEDS: INSULIN LISPRO 100 UNIT/ML SUBCUT SCH ×2 (10:05→11:47)
[2022-02-11] MEDS: PIPERACILLIN/TAZOBACTAM 3,375 MG in SODIUM CHLORIDE 0.9% 100 ML IV SCH (10:06)
[2022-02-11] MEDS: METOPROLOL TARTRATE 25 MG TABLET PO SCH (10:06)
[2022-02-11] MEDS: MAGNESIUM OXIDE 400 MG TABLET PO SCH (10:06)
[2022-02-11] MEDS: NICOTINE 14 MG/24 HR PATCH TRANSDERM SCH (12:11)
[2022-02-11 12:26] VITALS: BP 142/84
== END 2022-02-11 15:08 | DRG 641 ==
LOC: EDUNIT# → N.ED 18:58 → N.EDINP 22:41 → N.TELES 02-05 01:12
PROVIDERS: ADMIT Family Medicine; ATTEND Family Medicine

== ENCOUNTER 2022-03-06 13:36 | Inpatient (IN) ==
[2022-03-06] MEDS ORDERED: ONDANSETRON 4 MG/2 ML VIAL IV STA (15:07)
[2022-03-06] MEDS ORDERED: SODIUM CHLORIDE 0.9% 500 ML IV STA ×2 (15:07→17:04)
[2022-03-06 15:36] LABS: Basophils # 0.1 10*3/uL (0.0-0.2); Basophils % 0.8 % (0.0-0.8); Eosinophils # 0.1 10*3/uL (0.0-0.87); Hematocrit 27.7 VOL% (35.7-47.0); Hemoglobin 8.9 GM/DL (12.0-16.0); Immature Granulocytes % 0.4 %; Immature Granulocytes Absolute 0.03 #; Lymphocytes # 0.7 10*3/uL (1.4-4.0); Mean Corpuscular HGB Conc 32.1 GM/DL (32-36); Mean Corpuscular Volume 85.2 FL (87-102); Mean Platelet Volume 8.9 FL (9.6-12.0); Monocytes # 0.4 10*3/uL (0.11-0.8); Monocytes % 5.8 % (1.7-12.7); Platelet Count 392 T/CUMM (130-400); Red Blood Count 3.25 MC/CUMM (3.8-5.5); Red Cell Distribution Width 15.9 % (9.3-17.3); White Blood Count 7.1 T/CUMM (4-12)
[2022-03-06 15:49] LABS: Calcium 8.8 MG/DL (8.5-10.1); Osmolality,Calculated 272.6 MOS/KG (273-304); Potassium 4.8 MMOL/L (3.5-5.1)
[2022-03-06 16:45] LABS: Bacteria,Urine Many /HPF (Few); Bilirubin,Urine Negative (Negative); Blood, Urine Moderate mg/dL (Negative); Glucose,Urine (UA) Negative (Negative); Ketones,Urine Negative (Negative); Nitrite,Urine Negative (Negative); Protein,Urine >=300 mg/dL (Negative); RBC,Urine 60 /HPF (0-4); Squamous Epithelial Cell,Urine Occasional /HPF (0-10); Urine Appearance Slightly Cloudy (Clear); Urine Color Yellow (Yellow); Urine Urobilinogen 0.2 eU/dL (<2.0)
[2022-03-06] MEDS ORDERED: LABETALOL 20 MG/4 ML SYRINGE IV STA (17:04)
[2022-03-06] MEDS ORDERED: cefTRIAXone 1,000 MG in SODIUM CHLORIDE 0.9% 100 ML IV STA (17:05)
[2022-03-06] MEDS ORDERED: HYDROmorphone 1 MG/1 ML SYRINGE IV PRN (17:56)
[2022-03-06] MEDS ORDERED: DEXTROSE 10% 250 ML BAG IV PRN (17:56)
[2022-03-06] MEDS ORDERED: GLUCAGON 1 MG VIAL IM PRN (17:56)
[2022-03-06] MEDS: INSULIN REGULAR 100 UNIT/ML SUBCUT SCH (19:23)
[2022-03-06] MEDS ORDERED: MELATONIN 3 MG TABLET PO SCH (21:00)
[2022-03-06] MEDS ORDERED: METOPROLOL TARTRATE 25 MG TABLET PO SCH (21:00)
[2022-03-06] MEDS: ONDANSETRON 4 MG/2 ML VIAL IV PRN (21:10)
[2022-03-06] MEDS: SODIUM CHLORIDE 0.9% 1,000 ML IV SCH (21:11)
[2022-03-06] MEDS: ACETAMINOPHEN 500 MG TABLET PO PRN (23:42)
[2022-03-07] MEDS: BENZONATATE 100 MG CAPSULE PO SCH ×4 (00:04→20:06)
[2022-03-07] MEDS ORDERED: cefTRIAXone 1,000 MG in SODIUM CHLORIDE 0.9% 100 ML IV SCH (06:00)
[2022-03-07] MEDS: PANTOPRAZOLE 40 MG TABLET PO SCH (08:43)
[2022-03-07] MEDS: MAGNESIUM OXIDE 400 MG TABLET PO SCH (08:43)
[2022-03-07] MEDS: METOPROLOL TARTRATE 25 MG TABLET PO SCH ×2 (08:43→20:07)
[2022-03-07] MEDS: FUROSEMIDE 20 MG/2 ML VIAL IV SCH (08:44)
[2022-03-07] MEDS: INSULIN GLARGINE 100 UNIT/ML SUBCUT SCH (08:44)
[2022-03-07] MEDS: INSULIN REGULAR 100 UNIT/ML SUBCUT SCH ×2 (08:45→17:11)
[2022-03-07] MEDS: SODIUM CHLORIDE 0.9% 1,000 ML IV SCH ×2 (08:47→11:11)
[2022-03-07 11:01] LABS: Basophils # 0.1 10*3/uL (0.0-0.2); Basophils % 0.7 % (0.0-0.8); Eosinophils # 0.2 10*3/uL (0.0-0.87); Eosinophils % 2.2 % (0.00-10.9); Hematocrit 23.7 VOL% (35.7-47.0); Hemoglobin 7.7 GM/DL (12.0-16.0); Immature Granulocytes % 0.6 %; Immature Granulocytes Absolute 0.05 #; Lymphocytes # 0.9 10*3/uL (1.4-4.0); Lymphocytes % 11.3 % (21.3-54.2); Mean Corpuscular HGB Conc 32.5 GM/DL (32-36); Mean Corpuscular Volume 84.9 FL (87-102); Mean Platelet Volume 8.7 FL (9.6-12.0); Monocytes # 0.7 10*3/uL (0.11-0.8); Neutrophils % 76.2 % (38.7-73.9); Platelet Count 416 T/CUMM (130-400); Red Blood Count 2.79 MC/CUMM (3.8-5.5); White Blood Count 8.1 T/CUMM (4-12)
[2022-03-07 11:17] LABS: Calcium 8.7 MG/DL (8.5-10.1); Osmolality,Calculated 282.5 MOS/KG (273-304); Potassium 4.7 MMOL/L (3.5-5.1)
[2022-03-07] MEDS ORDERED: SODIUM CHLORIDE 0.9% 1,000 ML IV PRN (12:58)
[2022-03-07] MEDS ORDERED: hydrALAZINE 25 MG TABLET PO ONE (17:04)
[2022-03-07] MEDS ORDERED: FUROSEMIDE 20 MG/2 ML VIAL IV ONE (19:30)
[2022-03-07] MEDS: ACETAMINOPHEN 500 MG TABLET PO PRN (20:07)
[2022-03-07] MEDS: hydrALAZINE 25 MG TABLET PO SCH (20:07)
[2022-03-07] MEDS ORDERED: MAGNESIUM HYDROXIDE SUSP 30 ML UDCUP PO PRN (22:02)
[2022-03-07] MEDS: MELATONIN 3 MG TABLET PO PRN (22:09)
[2022-03-08] MEDS: cloNIDine 0.1 MG TABLET PO PRN (01:10)
[2022-03-08 06:08] LABS: Basophils # 0.1 10*3/uL (0.0-0.2); Basophils % 0.7 % (0.0-0.8); Eosinophils # 0.3 10*3/uL (0.0-0.87); Eosinophils % 3.6 % (0.00-10.9); Hematocrit 29.2 VOL% (35.7-47.0); Immature Granulocytes % 0.8 %; Immature Granulocytes Absolute 0.07 #; Lymphocytes # 1.1 10*3/uL (1.4-4.0); Lymphocytes % 12.4 % (21.3-54.2); Mean Corpuscular HGB Conc 32.5 GM/DL (32-36); Mean Corpuscular Volume 85.4 FL (87-102); Monocytes # 0.8 10*3/uL (0.11-0.8); Monocytes % 8.7 % (1.7-12.7); Neutrophils % 73.8 % (38.7-73.9); Platelet Count 391 T/CUMM (130-400); Red Cell Distribution Width 15.9 % (9.3-17.3); White Blood Count 8.6 T/CUMM (4-12)
[2022-03-08 06:12] LABS: Red Blood Count 3.42 MC/CUMM (3.8-5.5)
[2022-03-08 06:13] LABS: Hemoglobin 9.5 GM/DL (12.0-16.0)
[2022-03-08 06:27] LABS: Calcium 8.6 MG/DL (8.5-10.1); Osmolality,Calculated 290.2 MOS/KG (273-304); Potassium 4.8 MMOL/L (3.5-5.1)
[2022-03-08] MEDS: BENZONATATE 100 MG CAPSULE PO SCH ×3 (09:01→21:24)
[2022-03-08] MEDS: INSULIN REGULAR 100 UNIT/ML SUBCUT SCH ×2 (09:01→15:56)
[2022-03-08] MEDS: PANTOPRAZOLE 40 MG TABLET PO SCH (09:01)
[2022-03-08] MEDS: MAGNESIUM OXIDE 400 MG TABLET PO SCH (09:02)
[2022-03-08] MEDS: hydrALAZINE 25 MG TABLET PO SCH ×3 (09:02→21:24)
[2022-03-08] MEDS: FUROSEMIDE 20 MG/2 ML VIAL IV SCH (09:02)
[2022-03-08] MEDS: METOPROLOL TARTRATE 25 MG TABLET PO SCH ×2 (09:02→21:24)
[2022-03-08] MEDS: ONDANSETRON 4 MG/2 ML VIAL IV PRN (09:03)
[2022-03-08 10:12] LABS: Bilirubin,Urine Negative (Negative); Blood, Urine Small mg/dL (Negative); Glucose,Urine (UA) Negative (Negative); Ketones,Urine Negative (Negative); Nitrite,Urine Negative (Negative); Protein,Urine 100 mg/dL (Negative); RBC,Urine 20 /HPF (0-4); Urine Appearance Clear (Clear); Urine Color Yellow (Yellow); Urine Specific Gravity 1.015 (1.001-1.035); Urine Urobilinogen 0.2 eU/dL (<2.0)
[2022-03-08] MEDS: INSULIN GLARGINE 100 UNIT/ML SUBCUT SCH (10:28)
[2022-03-08] MEDS: cefTAZidime 500 MG in SODIUM CHLORIDE 0.9% 100 ML IV SCH (18:59)
[2022-03-08] MEDS: MELATONIN 3 MG TABLET PO PRN (21:24)
[2022-03-08] MEDS: ACETAMINOPHEN 500 MG TABLET PO PRN (21:25)
[2022-03-09] MEDS: SODIUM CHLORIDE 0.9% 1,000 ML IV SCH ×4 (02:45→13:02)
[2022-03-09] MEDS: cloNIDine 0.1 MG TABLET PO PRN (04:09)
[2022-03-09 05:33] LABS: Uric Acid 5.9 MG/DL (2.6-6.0)
[2022-03-09 08:07] LABS: Basophils # 0.1 10*3/uL (0.0-0.2); Basophils % 0.9 % (0.0-0.8); Eosinophils # 0.5 10*3/uL (0.0-0.87); Hematocrit 30.2 VOL% (35.7-47.0); Hemoglobin 9.6 GM/DL (12.0-16.0); Immature Granulocytes % 0.7 %; Immature Granulocytes Absolute 0.06 #; Lymphocytes # 1.1 10*3/uL (1.4-4.0); Lymphocytes % 13.3 % (21.3-54.2); Mean Corpuscular HGB Conc 31.8 GM/DL (32-36); Mean Corpuscular Volume 87.8 FL (87-102); Mean Platelet Volume 9.2 FL (9.6-12.0); Monocytes # 0.9 10*3/uL (0.11-0.8); Monocytes % 10.7 % (1.7-12.7); Neutrophils % 68.4 % (38.7-73.9); Platelet Count 393 T/CUMM (130-400); Red Blood Count 3.44 MC/CUMM (3.8-5.5); Red Cell Distribution Width 16.6 % (9.3-17.3); White Blood Count 8.5 T/CUMM (4-12)
[2022-03-09 08:50] LABS: Alanine Aminotransferase 21 U/L (13-56); Albumin 2.5 G/DL (3.4-5.0); Alkaline Phosphatase 207 U/L (45-117); Aspartate Amino Transferase 16 U/L (0-37); Bilirubin,Total < 0.39 MG/DL (0.20-1.00); Blood Urea Nitrogen 65 MG/DL (7-18); Calcium 8.8 MG/DL (8.5-10.1); Carbon Dioxide 24 MMOL/L (21-32); Chloride 108 MMOL/L (98-107); Glucose 208 MG/DL (74-106); Osmolality,Calculated 297.8 MOS/KG (273-304); Potassium 4.4 MMOL/L (3.5-5.1); Sodium 137 MMOL/L (136-145); Total Protein 6.8 G/DL (6.4-8.2)
[2022-03-09] MEDS: INSULIN GLARGINE 100 UNIT/ML SUBCUT SCH (09:14)
[2022-03-09] MEDS: FUROSEMIDE 20 MG/2 ML VIAL IV SCH (09:15)
[2022-03-09] MEDS: INSULIN REGULAR 100 UNIT/ML SUBCUT SCH ×2 (09:15→16:59)
[2022-03-09] MEDS: MAGNESIUM OXIDE 400 MG TABLET PO SCH (09:16)
[2022-03-09] MEDS: hydrALAZINE 25 MG TABLET PO SCH ×3 (09:16→20:20)
[2022-03-09] MEDS: BENZONATATE 100 MG CAPSULE PO SCH ×3 (09:16→20:20)
[2022-03-09] MEDS: METOPROLOL TARTRATE 25 MG TABLET PO SCH ×2 (09:17→20:20)
[2022-03-09] MEDS: PANTOPRAZOLE 40 MG TABLET PO SCH (09:17)
[2022-03-09 10:38] LABS: Basophils # 0.1 10*3/uL (0.0-0.2); Basophils % 0.9 % (0.0-0.8); Eosinophils # 0.4 10*3/uL (0.0-0.87); Eosinophils % 4.1 % (0.00-10.9); Hematocrit 31.4 VOL% (35.7-47.0); Hemoglobin 9.8 GM/DL (12.0-16.0); Immature Granulocytes % 0.7 %; Immature Granulocytes Absolute 0.07 #; Lymphocytes # 0.8 10*3/uL (1.4-4.0); Lymphocytes % 7.6 % (21.3-54.2); Mean Corpuscular HGB Conc 31.2 GM/DL (32-36); Mean Platelet Volume 8.9 FL (9.6-12.0); Monocytes # 0.9 10*3/uL (0.11-0.8); Monocytes % 8.5 % (1.7-12.7); Neutrophils % 78.2 % (38.7-73.9); Platelet Count 385 T/CUMM (130-400); Red Blood Count 3.53 MC/CUMM (3.8-5.5); Red Cell Distribution Width 16.5 % (9.3-17.3); White Blood Count 10.3 T/CUMM (4-12)
[2022-03-09 10:54] LABS: Alanine Aminotransferase 19 U/L (13-56); Albumin 2.5 G/DL (3.4-5.0); Alkaline Phosphatase 187 U/L (45-117); Aspartate Amino Transferase 13 U/L (0-37); Bilirubin,Total < 0.39 MG/DL (0.20-1.00); Blood Urea Nitrogen 62 MG/DL (7-18); Calcium 8.8 MG/DL (8.5-10.1); Carbon Dioxide 25 MMOL/L (21-32); Chloride 109 MMOL/L (98-107); Glucose 151 MG/DL (74-106); Osmolality,Calculated 295.7 MOS/KG (273-304); Potassium 4.7 MMOL/L (3.5-5.1); Sodium 138 MMOL/L (136-145); Total Protein 6.8 G/DL (6.4-8.2)
[2022-03-09] MEDS ORDERED: BISACODYL 10 MG SUPP RECTAL ONE (11:00)
[2022-03-09] MEDS: POLYETHYLENE GLYCOL POWDER 17 GM PACK PO SCH (11:40)
[2022-03-09] MEDS: cefTAZidime 500 MG in SODIUM CHLORIDE 0.9% 100 ML IV SCH (16:58)
[2022-03-09] MEDS: MELATONIN 3 MG TABLET PO PRN (20:30)
[2022-03-10 06:29] LABS: Basophils # 0.1 10*3/uL (0.0-0.2); Basophils % 1.2 % (0.0-0.8); Eosinophils # 0.5 10*3/uL (0.0-0.87); Eosinophils % 6.6 % (0.00-10.9); Hematocrit 28.6 VOL% (35.7-47.0); Hemoglobin 8.9 GM/DL (12.0-16.0); Immature Granulocytes % 1.1 %; Immature Granulocytes Absolute 0.08 #; Lymphocytes # 1.4 10*3/uL (1.4-4.0); Lymphocytes % 19.1 % (21.3-54.2); Mean Corpuscular HGB Conc 31.1 GM/DL (32-36); Mean Corpuscular Volume 89.4 FL (87-102); Mean Platelet Volume 9.2 FL (9.6-12.0); Monocytes # 1.1 10*3/uL (0.11-0.8); Monocytes % 14.4 % (1.7-12.7); Neutrophils % 57.6 % (38.7-73.9); Platelet Count 357 T/CUMM (130-400); Red Cell Distribution Width 16.6 % (9.3-17.3); White Blood Count 7.5 T/CUMM (4-12)
[2022-03-10 06:51] LABS: Alanine Aminotransferase 16 U/L (13-56); Albumin 2.4 G/DL (3.4-5.0); Alkaline Phosphatase 178 U/L (45-117); Aspartate Amino Transferase 12 U/L (0-37); Bilirubin,Total < 0.39 MG/DL (0.20-1.00); Blood Urea Nitrogen 63 MG/DL (7-18); Calcium 8.6 MG/DL (8.5-10.1); Carbon Dioxide 24 MMOL/L (21-32); Chloride 109 MMOL/L (98-107); Glucose 200 MG/DL (74-106); Osmolality,Calculated 296.8 MOS/KG (273-304); Potassium 4.7 MMOL/L (3.5-5.1); Sodium 137 MMOL/L (136-145); Total Protein 6.4 G/DL (6.4-8.2)
[2022-03-10] MEDS: PANTOPRAZOLE 40 MG TABLET PO SCH (09:45)
[2022-03-10] MEDS: MAGNESIUM OXIDE 400 MG TABLET PO SCH (09:45)
[2022-03-10] MEDS: METOPROLOL TARTRATE 25 MG TABLET PO SCH ×2 (09:45→21:18)
[2022-03-10] MEDS: INSULIN GLARGINE 100 UNIT/ML SUBCUT SCH (09:45)
[2022-03-10] MEDS: hydrALAZINE 25 MG TABLET PO SCH ×3 (09:45→21:18)
[2022-03-10] MEDS: BENZONATATE 100 MG CAPSULE PO SCH ×3 (09:45→21:18)
[2022-03-10] MEDS: FUROSEMIDE 20 MG/2 ML VIAL IV SCH (09:46)
[2022-03-10] MEDS: POLYETHYLENE GLYCOL POWDER 17 GM PACK PO SCH (09:46)
[2022-03-10] MEDS: SODIUM CHLORIDE 0.9% 1,000 ML IV SCH (09:47)
[2022-03-10] MEDS: INSULIN REGULAR 100 UNIT/ML SUBCUT SCH ×2 (09:55→17:37)
[2022-03-10] MEDS: SODIUM CHLORIDE 0.45% 1,000 ML IV SCH (15:16)
[2022-03-10] MEDS: cefTAZidime 500 MG in SODIUM CHLORIDE 0.9% 100 ML IV SCH (18:50)
[2022-03-10] MEDS: MELATONIN 3 MG TABLET PO PRN (21:21)
[2022-03-11] MEDS: SODIUM CHLORIDE 0.45% 1,000 ML IV SCH ×2 (03:15→12:50)
[2022-03-11 05:36] LABS: Calcium 8.6 MG/DL (8.5-10.1); Osmolality,Calculated 294.1 MOS/KG (273-304); Potassium 4.9 MMOL/L (3.5-5.1)
[2022-03-11 05:53] LABS: % Iron Saturation 16.9 % (18-50); Ferritin 299.4 ng/mL (8-252)
[2022-03-11] MEDS: INSULIN REGULAR 100 UNIT/ML SUBCUT SCH ×2 (07:42→16:37)
[2022-03-11 09:12] LABS: Basophils # 0.1 10*3/uL (0.0-0.2); Basophils % 1.4 % (0.0-0.8); Eosinophils # 0.7 10*3/uL (0.0-0.87); Eosinophils % 7.7 % (0.00-10.9); Hematocrit 29.8 VOL% (35.7-47.0); Hemoglobin 9.3 GM/DL (12.0-16.0); Immature Granulocytes % 1.2 %; Lymphocytes # 1.5 10*3/uL (1.4-4.0); Lymphocytes % 17.3 % (21.3-54.2); Mean Corpuscular HGB Conc 31.2 GM/DL (32-36); Mean Corpuscular Volume 88.4 FL (87-102); Mean Platelet Volume 8.9 FL (9.6-12.0); Monocytes % 11.3 % (1.7-12.7); Neutrophils % 61.1 % (38.7-73.9); Platelet Count 349 T/CUMM (130-400); Red Blood Count 3.37 MC/CUMM (3.8-5.5); Red Cell Distribution Width 16.8 % (9.3-17.3); White Blood Count 8.5 T/CUMM (4-12)
[2022-03-11] MEDS: POLYETHYLENE GLYCOL POWDER 17 GM PACK PO SCH (09:37)
[2022-03-11] MEDS: METOPROLOL TARTRATE 25 MG TABLET PO SCH ×2 (09:38→21:08)
[2022-03-11] MEDS: PANTOPRAZOLE 40 MG TABLET PO SCH (09:38)
[2022-03-11] MEDS: MAGNESIUM OXIDE 400 MG TABLET PO SCH (09:38)
[2022-03-11] MEDS: BENZONATATE 100 MG CAPSULE PO SCH ×3 (09:38→21:08)
[2022-03-11] MEDS: hydrALAZINE 25 MG TABLET PO SCH ×3 (09:38→21:09)
[2022-03-11] MEDS: INSULIN GLARGINE 100 UNIT/ML SUBCUT SCH (09:42)
[2022-03-11] MEDS: ACETAMINOPHEN 500 MG TABLET PO PRN (14:46)
[2022-03-11] MEDS: cefTAZidime 500 MG in SODIUM CHLORIDE 0.9% 100 ML IV SCH (17:35)
[2022-03-11] MEDS: MELATONIN 3 MG TABLET PO PRN (21:08)
[2022-03-11 23:02] LABS: Creatinine Clearance Urine 10.92 ML/MIN (70-115)
[2022-03-12] MEDS: PANTOPRAZOLE 40 MG TABLET PO SCH (08:58)
[2022-03-12] MEDS: METOPROLOL TARTRATE 25 MG TABLET PO SCH (08:58)
[2022-03-12] MEDS: BENZONATATE 100 MG CAPSULE PO SCH (08:58)
[2022-03-12] MEDS: MAGNESIUM OXIDE 400 MG TABLET PO SCH (08:58)
[2022-03-12] MEDS: hydrALAZINE 25 MG TABLET PO SCH (08:58)
[2022-03-12] MEDS: INSULIN REGULAR 100 UNIT/ML SUBCUT SCH (08:59)
[2022-03-12] MEDS: INSULIN GLARGINE 100 UNIT/ML SUBCUT SCH (08:59)
[2022-03-12] MEDS: POLYETHYLENE GLYCOL POWDER 17 GM PACK PO SCH (09:03)
[2022-03-12 12:15] VITALS: BP 170/59
== END 2022-03-12 12:30 | disposition home health service (06) | DRG 690 ==
LOC: N.ED 13:36 → N.EDINP 13:36 → N.5E 19:02
PROVIDERS: ADMIT Family Medicine; ATTEND Family Medicine